=== PATIENT | female | born 1990 | race Caucasian/White ===

== ENCOUNTER → 2018-01-18 07:13 | Outpatient (CLI) | payer OTHER, SELFPAY ==
--- NOTE | 2018-01-18 | DI.US.S_ITS ---
PROCEDURE: US PELVIC COMPLETE INDICATIONS: PELVIC PAIN TECHNIQUE: Real-time scanning was performed of the pelvic organs, with image documentation. Additional endovaginal scanning was necessary due to incomplete visualization of the adnexal and endometrial structures by transabdominal scanning. COMPARISON: None. FINDINGS: Transabdominal scanning: Limited scanning through the kidneys shows no hydronephrosis. No pathologic free abdominal or pelvic fluid. Endovaginal scanning: Uterus: Uterus is normal in size at 8.1 x 3.2 x 4.2 cm. The endometrium measures 3.3 mm in combined thickness. Intrauterine device in expected position. Ovaries: Complex left ovarian cyst present with fishnet appearance measuring 4.3 x 3.3 x 4.0 cm. Normal right ovary measured 3.0 x 2.2 x 1.8 cm IMPRESSION: Hemorrhagic appearing left ovarian cyst measuring up to 4.3 cm. Recommend short term follow pelvic ultrasound in 6-12 weeks to assess for interval resolution. Dictated by: Osvaldo Blount [facility] Interpreted: Marilin Slade MD on 01/18/2018 at 9:50 Approved by: Marilin Slade MD, PhD on 01/18/2018 at 12:04
== END ==
PROVIDERS: PCP Family Medicine; Visit Provider Nurse Practitioner Family
DX: N83.202 Unspecified ovarian cyst, left side (principal)
CPT/HCPCS: 76830; 76856

== ENCOUNTER 2019-12-07 12:02 | Emergency (ER) | payer OTHER, SELFPAY ==
[2019-12-07] VITALS (11 sets, daily range): BP systolic 103–141; BP diastolic 68–86; PULSE 92–120; RESP 16–20; TEMP 36.2; O2SAT 94–100
--- NOTE | 2019-12-07 12:17 | DI.RAD.S_ITS ---
PROCEDURE: XR CHEST 1V INDICATIONS: SOB, ? covid, symptoms since early November TECHNIQUE: One view of the chest was acquired. COMPARISON: None. FINDINGS: Surgical changes and devices: None. Lungs and pleura: Lungs are clear. No pleural effusions or pneumothorax. Mediastinum: Mediastinal contours appear normal. The heart appears enlarged. Bones and chest wall: No suspicious bony lesions. Overlying soft tissues appear unremarkable. IMPRESSION: Cardiomegaly without overt heart failure. No definite pneumonia. Dictated by: Jesse Christy M.D. on 12/07/2019 at 12:09 Approved by: Jesse Christy M.D. on 12/07/2019 at 12:09
--- NOTE | 2019-12-07 13:25 | ED_ITS ---
HPI - SOB/Dyspnea <MARCELA Mcdaniel - Last Filed: 12/07/19 23:49> General Chief Complaint: Shortness of Breath/Dyspnea Stated Complaint: possible covid got sent from respiratory Time Seen by Provider: 12/07/19 12:17 Source: patient Mode of arrival: Ambulatory Limitations: no limitations History of Present Illness HPI Narrative: This is a 29-year-old female, no known significant medical history, smoker, presents to ED with chief complain of dyspnea, short of breath for nearly 3 weeks. She reports associated symptoms as lightheadedness and chest pain with coughing. Patient states her symptoms started end of September and was evaluated in respiratory clinic a week after and discharged to home with albuterol inhaler and diagnosed with acute bronchitis. Patient states no silva virus swab was done at this time. Patient states albuterol inhaler with spacer helps her symptoms for a short period of time but she continues to have short of breath, dry wheezy coughing spells, dyspnea. Reports had episodes of blacked out for 3 times after the coughing spells and last 1 was about 5 days ago. The black outs have been witnessed by her significant other for about a minute with jerking movements. Patient states she wakes up feeling tired and reports nocturnal orthopnea. Patient denies fever, chills. She noticed occasional leg swelling. She has occasional nausea and diarrhea and has been trying to stay hydrated with liquids at home. She reports sore throat only with coughing. She denies known exposure to her people with COVID-19 and has been self isolating herself with limited outings to grocery stores. Her significant other is not ill at this time. Patient rarely drinks about once a month and occasionally smoking marijuana but denies IV drug use. Patient has been taking ibuprofen and Tylenol occasionally for headaches. Related Data Previous Rx's Medication Instructions Recorded albuterol sulfate 90 mcg/actuation 2 puff INHALATION Q4-6H PRN #18 11/24/19 aerosol inhaler gram Allergies Allergy/AdvReac Type Severity Reaction Status Date / Time No Known Drug Allergies Allergy Verified 11/24/19 15:23 Review of Systems <MARCELA Mcdaniel - Last Filed: 12/07/19 23:49> Review of Systems Narrative: General: Denies fever, chills, fatigue, malaise, sweats. HEENT: See HPI Respiratory: See HPI Cardiovascular: Denies (+) chest pain with cough, palpitations, (+) orthopnea, (+) edema. Gastrointestinal: Denies nausea, vomiting, abdominal pain, diarrhea, constipation, melena. : Denies dysuria, frequency, incontinence, hematuria, urinary retention. Musculoskeletal: Denies weakness, joint pain or bony pain. Skin: Denies rash, skin lesions, or other. Neurologic: Denies weakness, headache, numbness, change in speech, confusion, seizures, incoordination. Psychiatric: No concerning psychosocial issues. 12-point review of systems is negative except for those stated above. [facility] - Last Filed: 12/07/19 23:49> Social History Smoking Status: Current every day smoker Smoking Status: Current every day smoker Substance Use Type: marijuana Exam [facility] - Last Filed: 12/07/19 23:49> Narrative Exam Narrative: GEN: Alert, oriented x 3, well appearing and nourished, and in no acute distress. Head: Normal cephalic, atraumatic. No scalp or temporal tenderness, palpable mass or rash. EYES: Pupils are equal, round, and reactive to light and accommodation. Extraocular muscles are intact bilaterally. There is no subconjunctival hemorrhage, exudate and sclera non-icteric. ENT: Bilateral auditory canals and tympanic membranes clear. Hearing grossly intact. Nose without bleeding, purulent discharge or deviation. Facial sinuses nontender to palpate. Mucous membrane moist, no mucosal lesion. Throat without erythema, tonsillar hypertrophy or exudate. Uvula in midline, airway patent. Neck: Trachea in midline. No JVD, non-tender without lymphadenopathy. No masses or thyroid megaly. Supple, non-tender and no meningeal signs. CARDIAC: Normal tachy rate without murmurs, gallops, or rubs. No chest wall tenderness. Bilateral lower extremity +1 edema without cyanosis or pallor. Capillary refill is less than 2 seconds. RESPIRATORY: Lungs are clear to auscultate bilaterally. No cough, wheezes, rales, or rhonchi. No stridor. Tachypnea rate at 100's with labored breathing without accessary muscle used. O2 sat in room air ranging from 94-96% during exam. ABD: Abdomen soft, nontender and non-distended. No guarding or rebound tenderness to palpate. Bowel sounds are normal in all 4 quadrants. There is no palpable masses or organomegaly. EXT: Full painless ROM of all extremities with no loss of sensation, strength, effusion or edema. SKIN: Warm, dry, normal color for patient. No erythema, lesions or rash over visible areas. BACK: Nontender without deformity or crepitance. No flank tenderness. NEUROLOGICAL: Alert and oriented to place, time and person. Sensation and motor function intact bilaterally. No facial droops, dysphasia. PSYCHIATRIC: Good judgement and reason, without hallucinations, abnormal affect or abnormal behaviors during the examination. Patient is not suicidal. Initial Vital Signs Initial Vital Signs: Vital Signs Temperature 97.1 F L 12/07/19 12:25 Pulse Rate 106 H 12/07/19 12:25 Respiratory Rate 18 12/07/19 12:25 Blood Pressure 140/84 12/07/19 12:25 Pulse Oximetry 96 12/07/19 12:25 <Cristy Light DO - Last Filed: 12/10/19 11:43> Initial Vital Signs Initial Vital Signs: Vital Signs Temperature 97.1 F L 12/07/19 12:25 Pulse Rate 106 H 12/07/19 12:25 Respiratory Rate 18 12/07/19 12:25 Blood Pressure 140/84 12/07/19 12:25 Pulse Oximetry 96 12/07/19 12:25 Scores <[facility] - Last Filed: 12/07/19 23:49> GCS [place] coma scale eye opening: Spontaneous [place] coma scale verbal response: Orientated [place] coma scale motor response: Obey commands [place] coma scale total score: 15 qSOFA Altered Mental Status (GCS <15): No Respiratory rate greater than/equal to 22: Yes Systolic blood pressure less than or equal to 100: No qSOFA Total: 1 0-1 Not High Risk 1-3 High risk Wells' Criteria for PE Clinical signs and symptoms of DVT: No PE is #1 Dx or equally likely: Yes Heart rate > 100: Yes Immobilization at least 3 days or surg in previous 4 weeks: No History of PE or DVT: No Hemoptysis: No Malignancy w/Treatment within 6 months or palliative: No Wells' PE Score total: 4.5 Course <Chet MARCELA Caal - Last Filed: 12/07/19 23:49> Orders Ordered: Discontinued Medications Acetaminophen (Tylenol) 650 mg PO NOW ONE Stop: 12/07/19 13:08 Last Admin: 12/07/19 13:57 Dose: 650 mg Documented by: FABIEN Furosemide (Lasix) 20 mg IV NOW ONE Stop: 12/07/19 17:04 Last Admin: 12/07/19 17:35 Dose: 20 mg Documented by: FABIEN Sodium Chloride (Normal Saline 0.9%) 1,000 mls @ 125 mls/hr IV BOLUS ONE Stop: 12/07/19 21:06 Last Infusion: 12/07/19 14:42 Dose: 125 mls/hr Documented by: HUESENKatie Admin: 12/07/19 13:57 Dose: 125 mls/hr Documented by: FABIEN Azithromycin 500 mg/ Dextrose 250 mls @ 250 mls/hr IV NOW ONE Stop: 12/07/19 17:04 Last Infusion: 12/07/19 18:41 Dose: 0 mls/hr Documented by: HUESENKatie Admin: 12/07/19 17:28 Dose: 250 mls/hr Documented by: FABIEN Ceftriaxone Sodium/Dextrose (Rocephin) 1 gm in 50 mls @ 100 mls/hr IV NOW ONE Stop: 12/07/19 17:33 Last Infusion: 12/07/19 18:41 Dose: 0 mls/hr Documented by: HUESENKatie Admin: 12/07/19 17:30 Dose: 100 mls/hr Documented by: FABIEN Ceftriaxone Sodium 500 mg/ (Dextrose) 50 mls @ 100 mls/hr IV NOW ONE Stop: 12/07/19 17:04 Last Admin: 12/07/19 18:31 Dose: Not Given Documented by: FABIEN Ondansetron HCl (Zofran) 4 mg IV NOW ONE Stop: 12/07/19 18:43 Last Admin: 12/07/19 18:46 Dose: 4 mg Documented by: FABIEN Vital Signs Vital signs: Vital Signs - 8 hr 12/07/19 17:30 12/07/19 17:32 12/07/19 18:43 Pulse Rate 94 H 92 H 120 H Respiratory Rate 18 18 Blood Pressure Blood Pressure [Right Arm] 133/82 135/80 103/68 Pulse Oximetry 100 100 12/07/19 19:50 12/07/19 20:30 12/07/19 22:24 Pulse Rate 99 H 110 H 107 H Respiratory Rate 18 Blood Pressure 121/73 Blood Pressure [Right Arm] 115/77 132/70 Pulse Oximetry 99 95 99 <Cristy Light, DO - Last Filed: 12/10/19 11:43> Orders Ordered: Discontinued Medications Acetaminophen (Tylenol) 650 mg PO NOW ONE Stop: 12/07/19 13:08 Last Admin: 12/07/19 13:57 Dose: 650 mg Documented by: HUESENKatie Furosemide (Lasix) 20 mg IV NOW ONE Stop: 12/07/19 17:04 Last Admin: 12/07/19 17:35 Dose: 20 mg Documented by: HUESENKatie Sodium Chloride (Normal Saline 0.9%) 1,000 mls @ 125 mls/hr IV BOLUS ONE Stop: 12/07/19 21:06 Last Infusion: 12/07/19 14:42 Dose: 125 mls/hr Documented by: HUESENKatie Admin: 12/07/19 13:57 Dose: 125 mls/hr Documented by: FABIEN Azithromycin 500 mg/ Dextrose 250 mls @ 250 mls/hr IV NOW ONE Stop: 12/07/19 17:04 Last Infusion: 12/07/19 18:41 Dose: 0 mls/hr Documented by: HUESENKatie Admin: 12/07/19 17:28 Dose: 250 mls/hr Documented by: HUESENKatie Ceftriaxone Sodium/Dextrose (Rocephin) 1 gm in 50 mls @ 100 mls/hr IV NOW ONE Stop: 12/07/19 17:33 Last Infusion: 12/07/19 18:41 Dose: 0 mls/hr Documented by: Admin: 12/07/19 17:30 Dose: 100 mls/hr Documented by: HUESENKatie Ceftriaxone Sodium 500 mg/ (Dextrose) 50 mls @ 100 mls/hr IV NOW ONE Stop: 12/07/19 17:04 Last Admin: 12/07/19 18:31 Dose: Not Given Documented by: HUESENKatie Ondansetron HCl (Zofran) 4 mg IV NOW ONE Stop: 12/07/19 18:43 Last Admin: 12/07/19 18:46 Dose: 4 mg Documented by: FABIEN Vital Signs Vital signs: Vital Signs - 8 hr 12/07/19 17:30 12/07/19 17:32 12/07/19 18:43 Pulse Rate 94 H 92 H 120 H Respiratory Rate 18 18 Blood Pressure Blood Pressure [Right Arm] 133/82 135/80 103/68 Pulse Oximetry 100 100 12/07/19 19:50 12/07/19 20:30 12/07/19 22:24 Pulse Rate 99 H 110 H 107 H Respiratory Rate 18 Blood Pressure 121/73 Blood Pressure [Right Arm] 115/77 132/70 Pulse Oximetry 99 95 99 MDM - SOB/Dyspnea <Chet MARCELA Caal - Last Filed: 12/07/19 23:49> Differential Diagnosis Differential diagnosis: Likely congestive heart failure, community acquired pneumonia, pulmonary embolism and other (Bronchitis, Covid 19, heart failure, myocardiopathy, pericarditis, cardiac tamponade) Medical Records Attestation: I reviewed the patient's medical records. Lab Data Attestation: I reviewed the patient's lab results. Result diagrams: 12/07/19 13:30 12/07/19 13:30 Labs: Lab Results 12/07/19 12/07/19 12/07/19 Range/Units 13:30 13:30 13:30 WBC 11.9 H (4.5-11.0) X10^3/uL RBC 4.90 (4.0-5.2) X10^6/uL Hgb 14.8 (12.0-16.0) g/dL Hct 44.8 (36-46) % MCV 91.5 (80-100) fL MCH 30.2 (26-34) PG MCHC 33.0 (30-36) % RDW 14.4 (11.6-14.8) % Plt Count 296 (150-400) X10^3/uL Neut % (Auto) 62.1 (50-75) % Lymph % (Auto) 27.1 (25-40) % [place] % (Auto) 7.8 (3-14) % Eos % (Auto) 1.7 L (2-4) % Baso % (Auto) 1.3 (0-2) % Neut # (Auto) 7400 H (7742-2837) /uL Lymph # (Auto) 3200 (5917-6065) /uL [place] # (Auto) 900 (0-900) /uL Eos # (Auto) 200 (0-450) /uL Baso # (Auto) 200 H (0-100) /uL ESR (0-20) MM/HR D-Dimer 703 H (<230) ng/mL Sodium 136 L (137-145) mmol/L Potassium 4.8 (3.4-5.1) mmol/L Chloride 104 (98-107) mmol/L Carbon Dioxide 24 (22-32) mmol/L BUN 17 (7-17) mg/dL Creatinine 0.72 (0.52-1.04) mg/dL Estimated GFR > 60.0 (>60) mL/min BUN/Creatinine Ratio 23.6 H (6-22) Glucose 107 H (70-100) mg/dL Lactate (0.7-2.1) mmol/L Calcium 9.1 (8.4-10.2) mg/dL Total Bilirubin 1.1 (0.2-1.3) mg/dL AST 54 H (14-36) IU/L ALT 47 H (<35) IU/L Alkaline Phosphatase 102 (38-126) U/L Lactate Dehydrogenase 848 H (313-618) U/L Total Creatine Kinase 129 (30-135) U/L CK-MB (CK-2) 2.26 (<2.37) ng/mL CK-MB (CK-2) Rel Index 1.8 (1.5-5.0) % Troponin I < 0.012 (0.01-0.034) ng/mL C-Reactive Protein (<1.0) mg/dL NT-Pro-B Natriuret Pep 1560 H (<125) pg/mL Total Protein 7.0 (6.3-8.2) g/dL Albumin 3.8 (3.5-5.0) g/dL Globulin 3.2 (1.7-4.1) g/dL Albumin/Globulin Ratio 1.2 (1.0-2.8) Procalcitonin (<0.5) ng/mL U Opiates 300ng/mL cut (Negative) Ur Oxycodone Screen (Negative) Urine Methadone Screen (Negative) Ur Barbiturates Screen (Negative) U Tricyclic Antidepress (Negative) Ur Phencyclidine Scrn (Negative) Ur Amphetamines Screen (Negative) U Methamphetamines Scrn (Negative) Ur MDMA Scrn (Ecstasy) (Negative) U Benzodiazepines Scrn (Negative) Urine Cocaine Screen (Negative) U Marijuana (THC) Screen (Negative) Chlamy pneumoniae PCR (Not Detect) Adenovirus (PCR) (Not Detect) B.parapertussis DNA PCR (Not Detect) Coronavirus OC43 (PCR) (Not Detect) Coronavirus HKU1 (PCR) (Not Detect) Coronavirus 229E (PCR) (Not Detect) COVID-19 PCR Coronavirus NL63 (PCR) (Not Detect) Human Metapneumovir PCR (Not Detect) Influenza Type A (PCR) (Not Detect) Influenza Type B (PCR) (Not Detect) M. pneumoniae (PCR) (Not Detect) Parainfluenza 1 (PCR) (Not Detect) Parainfluenza 2 (PCR) (Not Detect) Parainfluenza 3 (PCR) (Not Detect) Parainfluenza 4 (PCR) (Not Detect) RSV (PCR) (Not Detect) Entero/Rhino (PCR) (Not Detect) 12/07/19 12/07/19 12/07/19 Range/Units 13:30 13:30 13:30 WBC (4.5-11.0) X10^3/uL RBC (4.0-5.2) X10^6/uL Hgb (12.0-16.0) g/dL Hct (36-46) % MCV (80-100) fL MCH (26-34) PG MCHC (30-36) % RDW (11.6-14.8) % Plt Count (150-400) X10^3/uL Neut % (Auto) (50-75) % Lymph % (Auto) (25-40) % [place] % (Auto) (3-14) % Eos % (Auto) (2-4) % Baso % (Auto) (0-2) % Neut # (Auto) (7356-3509) /uL Lymph # (Auto) (4395-0721) /uL [place] # (Auto) (0-900) /uL Eos # (Auto) (0-450) /uL Baso # (Auto) (0-100) /uL ESR 3 (0-20) MM/HR D-Dimer (<230) ng/mL Sodium (137-145) mmol/L Potassium (3.4-5.1) mmol/L Chloride (98-107) mmol/L Carbon Dioxide (22-32) mmol/L BUN (7-17) mg/dL Creatinine (0.52-1.04) mg/dL Estimated GFR (>60) mL/min BUN/Creatinine Ratio (6-22) Glucose (70-100) mg/dL Lactate 1.5 (0.7-2.1) mmol/L Calcium (8.4-10.2) mg/dL Total Bilirubin (0.2-1.3) mg/dL AST (14-36) IU/L ALT (<35) IU/L Alkaline Phosphatase (38-126) U/L Lactate Dehydrogenase (313-618) U/L Total Creatine Kinase (30-135) U/L CK-MB (CK-2) (<2.37) ng/mL CK-MB (CK-2) Rel Index (1.5-5.0) % Troponin I (0.01-0.034) ng/mL C-Reactive Protein (<1.0) mg/dL NT-Pro-B Natriuret Pep (<125) pg/mL Total Protein (6.3-8.2) g/dL Albumin (3.5-5.0) g/dL Globulin (1.7-4.1) g/dL Albumin/Globulin Ratio (1.0-2.8) Procalcitonin < 0.05 (<0.5) ng/mL U Opiates 300ng/mL cut (Negative) Ur Oxycodone Screen (Negative) Urine Methadone Screen (Negative) Ur Barbiturates Screen (Negative) U Tricyclic Antidepress (Negative) Ur Phencyclidine Scrn (Negative) Ur Amphetamines Screen (Negative) U Methamphetamines Scrn (Negative) Ur MDMA Scrn (Ecstasy) (Negative) U Benzodiazepines Scrn (Negative) Urine Cocaine Screen (Negative) U Marijuana (THC) Screen (Negative) Chlamy pneumoniae PCR (Not Detect) Adenovirus (PCR) (Not Detect) B.parapertussis DNA PCR (Not Detect) Coronavirus OC43 (PCR) (Not Detect) Coronavirus HKU1 (PCR) (Not Detect) Coronavirus 229E (PCR) (Not Detect) COVID-19 PCR Coronavirus NL63 (PCR) (Not Detect) Human Metapneumovir PCR (Not Detect) Influenza Type A (PCR) (Not Detect) Influenza Type B (PCR) (Not Detect) M. pneumoniae (PCR) (Not Detect) Parainfluenza 1 (PCR) (Not Detect) Parainfluenza 2 (PCR) (Not Detect) Parainfluenza 3 (PCR) (Not Detect) Parainfluenza 4 (PCR) (Not Detect) RSV (PCR) (Not Detect) Entero/Rhino (PCR) (Not Detect) 12/07/19 12/07/19 12/07/19 Range/Units 13:30 13:37 15:24 WBC (4.5-11.0) X10^3/uL RBC (4.0-5.2) X10^6/uL Hgb (12.0-16.0) g/dL Hct (36-46) % MCV (80-100) fL MCH (26-34) PG MCHC (30-36) % RDW (11.6-14.8) % Plt Count (150-400) X10^3/uL Neut % (Auto) (50-75) % Lymph % (Auto) (25-40) % [place] % (Auto) (3-14) % Eos % (Auto) (2-4) % Baso % (Auto) (0-2) % Neut # (Auto) (0555-8786) /uL Lymph # (Auto) (7850-8140) /uL [place] # (Auto) (0-900) /uL Eos # (Auto) (0-450) /uL Baso # (Auto) (0-100) /uL ESR (0-20) MM/HR D-Dimer (<230) ng/mL Sodium (137-145) mmol/L Potassium (3.4-5.1) mmol/L Chloride (98-107) mmol/L Carbon Dioxide (22-32) mmol/L BUN (7-17) mg/dL Creatinine (0.52-1.04) mg/dL Estimated GFR (>60) mL/min BUN/Creatinine Ratio (6-22) Glucose (70-100) mg/dL Lactate (0.7-2.1) mmol/L Calcium (8.4-10.2) mg/dL Total Bilirubin (0.2-1.3) mg/dL AST (14-36) IU/L ALT (<35) IU/L Alkaline Phosphatase (38-126) U/L Lactate Dehydrogenase (313-618) U/L Total Creatine Kinase (30-135) U/L CK-MB (CK-2) (<2.37) ng/mL CK-MB (CK-2) Rel Index (1.5-5.0) % Troponin I (0.01-0.034) ng/mL C-Reactive Protein 2.2 H (<1.0) mg/dL NT-Pro-B Natriuret Pep (<125) pg/mL Total Protein (6.3-8.2) g/dL Albumin (3.5-5.0) g/dL Globulin (1.7-4.1) g/dL Albumin/Globulin Ratio (1.0-2.8) Procalcitonin (<0.5) ng/mL U Opiates 300ng/mL cut (Negative) Ur Oxycodone Screen (Negative) Urine Methadone Screen (Negative) Ur Barbiturates Screen (Negative) U Tricyclic Antidepress (Negative) Ur Phencyclidine Scrn (Negative) Ur Amphetamines Screen (Negative) U Methamphetamines Scrn (Negative) Ur MDMA Scrn (Ecstasy) (Negative) U Benzodiazepines Scrn (Negative) Urine Cocaine Screen (Negative) U Marijuana (THC) Screen (Negative) Chlamy pneumoniae PCR (Not Detect) Adenovirus (PCR) (Not Detect) B.parapertussis DNA PCR (Not Detect) Coronavirus OC43 (PCR) (Not Detect) Coronavirus HKU1 (PCR) (Not Detect) Coronavirus 229E (PCR) (Not Detect) COVID-19 PCR Cancelled Negative Coronavirus NL63 (PCR) (Not Detect) Human Metapneumovir PCR (Not Detect) Influenza Type A (PCR) (Not Detect) Influenza Type B (PCR) (Not Detect) M. pneumoniae (PCR) (Not Detect) Parainfluenza 1 (PCR) (Not Detect) Parainfluenza 2 (PCR) (Not Detect) Parainfluenza 3 (PCR) (Not Detect) Parainfluenza 4 (PCR) (Not Detect) RSV (PCR) (Not Detect) Entero/Rhino (PCR) (Not Detect) 12/07/19 12/07/19 Range/Units 18:08 18:50 WBC (4.5-11.0) X10^3/uL RBC (4.0-5.2) X10^6/uL Hgb (12.0-16.0) g/dL Hct (36-46) % MCV (80-100) fL MCH (26-34) PG MCHC (30-36) % RDW (11.6-14.8) % Plt Count (150-400) X10^3/uL Neut % (Auto) (50-75) % Lymph % (Auto) (25-40) % [place] % (Auto) (3-14) % Eos % (Auto) (2-4) % Baso % (Auto) (0-2) % Neut # (Auto) (6748-5894) /uL Lymph # (Auto) (2182-9231) /uL [place] # (Auto) (0-900) /uL Eos # (Auto) (0-450) /uL Baso # (Auto) (0-100) /uL ESR (0-20) MM/HR D-Dimer (<230) ng/mL Sodium (137-145) mmol/L Potassium (3.4-5.1) mmol/L Chloride (98-107) mmol/L Carbon Dioxide (22-32) mmol/L BUN (7-17) mg/dL Creatinine (0.52-1.04) mg/dL Estimated GFR (>60) mL/min BUN/Creatinine Ratio (6-22) Glucose (70-100) mg/dL Lactate (0.7-2.1) mmol/L Calcium (8.4-10.2) mg/dL Total Bilirubin (0.2-1.3) mg/dL AST (14-36) IU/L ALT (<35) IU/L Alkaline Phosphatase (38-126) U/L Lactate Dehydrogenase (313-618) U/L Total Creatine Kinase (30-135) U/L CK-MB (CK-2) (<2.37) ng/mL CK-MB (CK-2) Rel Index (1.5-5.0) % Troponin I (0.01-0.034) ng/mL C-Reactive Protein (<1.0) mg/dL NT-Pro-B Natriuret Pep (<125) pg/mL Total Protein (6.3-8.2) g/dL Albumin (3.5-5.0) g/dL Globulin (1.7-4.1) g/dL Albumin/Globulin Ratio (1.0-2.8) Procalcitonin (<0.5) ng/mL U Opiates 300ng/mL cut Negative (Negative) Ur Oxycodone Screen Negative (Negative) Urine Methadone Screen Negative (Negative) Ur Barbiturates Screen Negative (Negative) U Tricyclic Antidepress Negative (Negative) Ur Phencyclidine Scrn Negative (Negative) Ur Amphetamines Screen Positive H (Negative) U Methamphetamines Scrn Positive H (Negative) Ur MDMA Scrn (Ecstasy) Negative (Negative) U Benzodiazepines Scrn Negative (Negative) Urine Cocaine Screen Negative (Negative) U Marijuana (THC) Screen Positive H (Negative) Chlamy pneumoniae PCR Not detected (Not Detect) Adenovirus (PCR) Not detected (Not Detect) B.parapertussis DNA PCR Not detected (Not Detect) Coronavirus OC43 (PCR) Not detected (Not Detect) Coronavirus HKU1 (PCR) Not detected (Not Detect) Coronavirus 229E (PCR) Not detected (Not Detect) COVID-19 PCR Coronavirus NL63 (PCR) Not detected (Not Detect) Human Metapneumovir PCR Not detected (Not Detect) Influenza Type A (PCR) Not detected (Not Detect) Influenza Type B (PCR) Not detected (Not Detect) M. pneumoniae (PCR) Not detected (Not Detect) Parainfluenza 1 (PCR) Not detected (Not Detect) Parainfluenza 2 (PCR) Not detected (Not Detect) Parainfluenza 3 (PCR) Not detected (Not Detect) Parainfluenza 4 (PCR) Not detected (Not Detect) RSV (PCR) Not detected (Not Detect) Entero/Rhino (PCR) Not detected (Not Detect) Point of Care Testing Test Results Negative Urine Dip Bedside Urine Glucose Negative Bedside Urine Bilirubin - Negative Bedside Urine Ketone - Negative Urine Specific [place] 1.010 Bedside Urine Occult Blood - Negative Bedside Urine pH 6 Bedside Urine Protein +/- 15 Bedside Urine Urobilinogen - Negative Bedside Urine Nitrite - Negative Bedside Urine Leukocytes - Negative Esterase Imaging Data Chest x-ray: Radiologist's Impression: Katelynn Soares A 29 F [address] [address] XRay Report Signed Patient: Katelynn Soares AMR#: [id number] : 1990Acct:[id number] Age/Sex: 29 / FDate of Service: 12/07/19 Loc: ED Accession Number: [id number] Procedure: XR chest 1V Ordering Provider: Cristy Light D.O. PROCEDURE: XR CHEST 1V INDICATIONS: SOB, ? covid, symptoms since early November TECHNIQUE: One view of the chest was acquired. COMPARISON: None. FINDINGS: Surgical changes and devices: None. Lungs and pleura: Lungs are clear. No pleural effusions or pneumothorax. Mediastinum: Mediastinal contours appear normal. The heart appears enlarged. Bones and chest wall: No suspicious bony lesions. Overlying soft tissues appear unremarkable. IMPRESSION: Cardiomegaly without overt heart failure. No definite pneumonia. Dictated by: Jesse Christy M.D. on 12/07/2019 at 12:09 Approved by: Jesse Christy M.D. on 12/07/2019 at 12:09 CT scan - chest: Radiologist's Impression: [address] [address] [address] Scan Report Signed Patient: Katelynn Soares AMR#: [id number] : 1990Acct:[id number] Age/Sex: 29 / FDate of Service: 12/07/19 Loc: ED Accession Number: [id number] Procedure: CT angio chest PE protocol Ordering Provider: Chet Caal PROCEDURE: CT ANGIO CHEST PE PROTOCOL INDICATIONS: dyspnea, sob, elevated d dimer TECHNIQUE: After the administration of intravenous contrast, 2 mm thick sections acquired from the pulmonary apices to the posterior costophrenic angles. 3-dimensional maximum intensity projection (MIP) coronal and sagittal reformats were then acquired through the thorax. For radiation dose reduction, the following was used: automated exposure control, adjustment of mA and/or kV according to patient size. COMPARISON: None. FINDINGS: Image quality: Excellent. Pulmonary arteries: The main pulmonary arterial trunk is enlarged and measures 3.8 cm in diameter (image 62, series 4). No intraluminal filling defects within it the main pulmonary arterial trunk, lobar branches, and subsegmental lobar branches are identified to suggest a pulmonary embolism. Lungs and pleura: There is a small right-sided pleural effusion and associated mild atelectasis. Groundglass attenuation within the bilateral suprahilar regions of the upper lobes are evident. No lung mass is identified. However, there is a 3 mm subpleural pulmonary nodule identified on the posterior aspect of the left upper lobe (image 30, series 4). No pneumothorax or large area of pulmonary consolidation is identified. Mediastinum: The heart is normal in size. However, there is a moderate-sized pericardial effusion.. No mediastinal or hilar adenopathy. Thoracic aorta is normal in caliber and enhancement. Esophagus is normal in caliber, without hiatal hernia. Bones and chest wall: No suspicious bony lesions. Ribs and thoracic spine appear intact throughout. Thyroid gland is not enlarged were adequately evaluated.. No axillary or supraclavicular adenopathy. Abdomen: Visualized upper abdominal solid organs appear normal in the early arterial phase of enhancement. IMPRESSION: 1. No evidence of pulmonary emboli. 2. Patchy areas of groundglass attenuation within the upper lobes is nonspecific. Differential diagnostic considerations would include atypical infections such as bronchopneumonia or pulmonary edema. Hypersensitivity pneumonitis could also potentially have this appearance. 3. Small right-sided pleural effusion and associated atelectasis. 4. Moderate-sized pericardial effusion. 5. Enlarged main pulmonary arterial trunk is nonspecific, but often seen in the setting of pulmonary hypertension. Please correlate clinically. Dictated by: Jesse Christy M.D. on 12/07/2019 at 13:58 Approved by: Jesse Christy M.D. on 12/07/2019 at 14:01 ECG Data Attestation: I personally reviewed and interpreted this ECG as follows: Prior ECG tracings: not available for review Interpretation: Sinus tachycardia rate at 100 with incomplete right bundle- branch block Left atrial enlargement with possible right ventricular hypertrophy R dominant axis ST depression in lead III and V3 [place] interval 162, QRS duration 110, QT/QTC 361/418 MDM Narrative Medical decision making narrative: This is a 29 year female who has dyspnea, short of breath, nonproductive cough for last 3 weeks. Reports exertional short of breath and witness 3 episodes of syncopal episodes after the coughing spells. Patient reports nocturnal orthopnea with some swelling to her legs. Patient reports feeling pressure in her chest and lightheaded with bending forward position. Patient denies fever or chills or nausea or vomiting. Initial chest x-ray indicates cardiomegaly without overt heart failure with clear lungs. Lung sounds were clear but patient had mild tachypnea with labored breathing with O2 sat at 94-96% and tachycardia of 106 bpm during initial exam. CBC indicates mild leukocytosis of WBC of 11.9 with normal lymphocyte counts. Normal procalcitonin and lactate. CMP indicates mild elevation of AST of 54 and ALT of 47. ProBNP was 1560 with D dimer of 704. LDH was mildly elevated as 848. Cardiac enzymes were negative. EKG indicates sinus tachycardia rate at 100 with incomplete right bundle-branch block, ST depression in lead III and V3 and left atrial enlargement and possible right ventricular hypertrophy. Wells PE score was 4.5 and considered for pulmonary embolism evaluation. The patient is afebrile and with systolic blood pressure ranging from 120s to 140s over 80s and diastolic with heart rates ranging in 90s to 110s. CT chest PE result indicates no evidence of pulmonary emboli. There was moderate size pericardial effusion with small right-sided pleural effusion associated atelectasis. There was enlarged main pulmonary artery trunk which is nonspecific but often seen in the setting of pulmonary hypertension and also patchy area of ground-glass attenuation with the upper lobes. Rapid Silva virus swab was negative. Consulted Dr. Stauffer (PCP) and it was recommended to consult hospitalist for admission and to manage her care with further evaluation and treatment. Dr. Mix (hospitalist) was consulted and it was recommend to consult the cardiolgist to rule out pericarditis. Additional lab test was added for ESR, CRP, respiratory panel as recommended. Patient is given IV azithromycin 500 mg, ceftriaxone 1 g after 2 sets of blood culture to treat atypical pneumonia and gently diuresing patient with 20 mg of Lasix. CRP was mildly elevated to 2.2 without elevation in ESR as 3. Dr. Guerra (idea worker) was consulted at 1930 and she kindly accepted her care for further work up with echocardiogram and pericarditis/cardiac tamponade and there is no cardiology service available at [facility] tomorrow.. She recommended to gently diuresing the patient and to hold any better nabor. According to Dr. Guerra, it is unlikely patient has myocardiopathy with normal cardiac enzymes without ST elevation. Patient had an episode of nausea and was medicated with Zofran which improved her symptoms. She had used her own inhaler with a spacer for short of breath also which improved her symptoms. Dr. Reyna ([facility] hospitalist) was consulted at 1950 and he kindly accepted patient's care with Dr. Guerra's recommendation. Additional Urine drug screening test was done and it indicates positive results for methamphetamine, amphetamine and THC. Dr. Stauffer informed again for pending transfer to [facility] which he appreciates the call. The patient is [facility] before arranging the transport. Spoke with at [facility] and he instructed patient to transfer to [facility] for her continuation of care. Informed patient of pending transfer to [facility] for further workup and higher level of care by idea worker and she agrees and completed requiring documentation. She is waiting for ALS transfer arrival with ETA at 2220. <Cristy Light, DO - Last Filed: 12/10/19 11:43> Lab Data Attestation: I reviewed the patient's lab results. Labs: Lab Results 12/07/19 12/07/19 12/07/19 Range/Units 13:30 13:30 13:30 WBC 11.9 H (4.5-11.0) X10^3/uL RBC 4.90 (4.0-5.2) X10^6/uL Hgb 14.8 (12.0-16.0) g/dL Hct 44.8 (36-46) % MCV 91.5 (80-100) fL MCH 30.2 (26-34) PG MCHC 33.0 (30-36) % RDW 14.4 (11.6-14.8) % Plt Count 296 (150-400) X10^3/uL Neut % (Auto) 62.1 (50-75) % Lymph % (Auto) 27.1 (25-40) % M[place]ulloch % (Auto) 7.8 (3-14) % Eos % (Auto) 1.7 L (2-4) % Baso % (Auto) 1.3 (0-2) % Neut # (Auto) 7400 H (6399-1454) /uL Lymph # (Auto) 3200 (5868-5758) /uL [place] # (Auto) 900 (0-900) /uL Eos # (Auto) 200 (0-450) /uL Baso # (Auto) 200 H (0-100) /uL ESR (0-20) MM/HR D-Dimer 703 H (<230) ng/mL Sodium 136 L (137-145) mmol/L Potassium 4.8 (3.4-5.1) mmol/L Chloride 104 (98-107) mmol/L Carbon Dioxide 24 (22-32) mmol/L BUN 17 (7-17) mg/dL Creatinine 0.72 (0.52-1.04) mg/dL Estimated GFR > 60.0 (>60) mL/min BUN/Creatinine Ratio 23.6 H (6-22) Glucose 107 H (70-100) mg/dL Lactate (0.7-2.1) mmol/L Calcium 9.1 (8.4-10.2) mg/dL Total Bilirubin 1.1 (0.2-1.3) mg/dL AST 54 H (14-36) IU/L ALT 47 H (<35) IU/L Alkaline Phosphatase 102 (38-126) U/L Lactate Dehydrogenase 848 H (313-618) U/L Total Creatine Kinase 129 (30-135) U/L CK-MB (CK-2) 2.26 (<2.37) ng/mL CK-MB (CK-2) Rel Index 1.8 (1.5-5.0) % Troponin I < 0.012 (0.01-0.034) ng/mL C-Reactive Protein (<1.0) mg/dL NT-Pro-B Natriuret Pep 1560 H (<125) pg/mL Total Protein 7.0 (6.3-8.2) g/dL Albumin 3.8 (3.5-5.0) g/dL Globulin 3.2 (1.7-4.1) g/dL Albumin/Globulin Ratio 1.2 (1.0-2.8) Procalcitonin (<0.5) ng/mL U Opiates 300ng/mL cut (Negative) Ur Oxycodone Screen (Negative) Urine Methadone Screen (Negative) Ur Barbiturates Screen (Negative) U Tricyclic Antidepress (Negative) Ur Phencyclidine Scrn (Negative) Ur Amphetamines Screen (Negative) U Methamphetamines Scrn (Negative) Ur MDMA Scrn (Ecstasy) (Negative) U Benzodiazepines Scrn (Negative) Urine Cocaine Screen (Negative) U Marijuana (THC) Screen (Negative) Chlamy pneumoniae PCR (Not Detect) Adenovirus (PCR) (Not Detect) B.parapertussis DNA PCR (Not Detect) Coronavirus OC43 (PCR) (Not Detect) Coronavirus HKU1 (PCR) (Not Detect) Coronavirus 229E (PCR) (Not Detect) COVID-19 PCR Coronavirus NL63 (PCR) (Not Detect) Human Metapneumovir PCR (Not Detect) Influenza Type A (PCR) (Not Detect) Influenza Type B (PCR) (Not Detect) M. pneumoniae (PCR) (Not Detect) Parainfluenza 1 (PCR) (Not Detect) Parainfluenza 2 (PCR) (Not Detect) Parainfluenza 3 (PCR) (Not Detect) Parainfluenza 4 (PCR) (Not Detect) RSV (PCR) (Not Detect) Entero/Rhino (PCR) (Not Detect) 12/07/19 12/07/19 12/07/19 Range/Units 13:30 13:30 13:30 WBC (4.5-11.0) X10^3/uL RBC (4.0-5.2) X10^6/uL Hgb (12.0-16.0) g/dL Hct (36-46) % MCV (80-100) fL MCH (26-34) PG MCHC (30-36) % RDW (11.6-14.8) % Plt Count (150-400) X10^3/uL Neut % (Auto) (50-75) % Lymph % (Auto) (25-40) % [place]ull[place] % (Auto) (3-14) % Eos % (Auto) (2-4) % Baso % (Auto) (0-2) % Neut # (Auto) (9540-6904) /uL Lymph # (Auto) (5209-8628) /uL [place] # (Auto) (0-900) /uL Eos # (Auto) (0-450) /uL Baso # (Auto) (0-100) /uL ESR 3 (0-20) MM/HR D-Dimer (<230) ng/mL Sodium (137-145) mmol/L Potassium (3.4-5.1) mmol/L Chloride (98-107) mmol/L Carbon Dioxide (22-32) mmol/L BUN (7-17) mg/dL Creatinine (0.52-1.04) mg/dL Estimated GFR (>60) mL/min BUN/Creatinine Ratio (6-22) Glucose (70-100) mg/dL Lactate 1.5 (0.7-2.1) mmol/L Calcium (8.4-10.2) mg/dL Total Bilirubin (0.2-1.3) mg/dL AST (14-36) IU/L ALT (<35) IU/L Alkaline Phosphatase (38-126) U/L Lactate Dehydrogenase (313-618) U/L Total Creatine Kinase (30-135) U/L CK-MB (CK-2) (<2.37) ng/mL CK-MB (CK-2) Rel Index (1.5-5.0) % Troponin I (0.01-0.034) ng/mL C-Reactive Protein (<1.0) mg/dL NT-Pro-B Natriuret Pep (<125) pg/mL Total Protein (6.3-8.2) g/dL Albumin (3.5-5.0) g/dL Globulin (1.7-4.1) g/dL Albumin/Globulin Ratio (1.0-2.8) Procalcitonin < 0.05 (<0.5) ng/mL U Opiates 300ng/mL cut (Negative) Ur Oxycodone Screen (Negative) Urine Methadone Screen (Negative) Ur Barbiturates Screen (Negative) U Tricyclic Antidepress (Negative) Ur Phencyclidine Scrn (Negative) Ur Amphetamines Screen (Negative) U Methamphetamines Scrn (Negative) Ur MDMA Scrn (Ecstasy) (Negative) U Benzodiazepines Scrn (Negative) Urine Cocaine Screen (Negative) U Marijuana (THC) Screen (Negative) Chlamy pneumoniae PCR (Not Detect) Adenovirus (PCR) (Not Detect) B.parapertussis DNA PCR (Not Detect) Coronavirus OC43 (PCR) (Not Detect) Coronavirus HKU1 (PCR) (Not Detect) Coronavirus 229E (PCR) (Not Detect) COVID-19 PCR Coronavirus NL63 (PCR) (Not Detect) Human Metapneumovir PCR (Not Detect) Influenza Type A (PCR) (Not Detect) Influenza Type B (PCR) (Not Detect) M. pneumoniae (PCR) (Not Detect) Parainfluenza 1 (PCR) (Not Detect) Parainfluenza 2 (PCR) (Not Detect) Parainfluenza 3 (PCR) (Not Detect) Parainfluenza 4 (PCR) (Not Detect) RSV (PCR) (Not Detect) Entero/Rhino (PCR) (Not Detect) 12/07/19 12/07/19 12/07/19 Range/Units 13:30 13:37 15:24 WBC (4.5-11.0) X10^3/uL RBC (4.0-5.2) X10^6/uL Hgb (12.0-16.0) g/dL Hct (36-46) % MCV (80-100) fL MCH (26-34) PG MCHC (30-36) % RDW (11.6-14.8) % Plt Count (150-400) X10^3/uL Neut % (Auto) (50-75) % Lymph % (Auto) (25-40) % [place]ull[place] % (Auto) (3-14) % Eos % (Auto) (2-4) % Baso % (Auto) (0-2) % Neut # (Auto) (4140-3021) /uL Lymph # (Auto) (7264-3045) /uL [place]ulloch # (Auto) (0-900) /uL Eos # (Auto) (0-450) /uL Baso # (Auto) (0-100) /uL ESR (0-20) MM/HR D-Dimer (<230) ng/mL Sodium (137-145) mmol/L Potassium (3.4-5.1) mmol/L Chloride (98-107) mmol/L Carbon Dioxide (22-32) mmol/L BUN (7-17) mg/dL Creatinine (0.52-1.04) mg/dL Estimated GFR (>60) mL/min BUN/Creatinine Ratio (6-22) Glucose (70-100) mg/dL Lactate (0.7-2.1) mmol/L Calcium (8.4-10.2) mg/dL Total Bilirubin (0.2-1.3) mg/dL AST (14-36) IU/L ALT (<35) IU/L Alkaline Phosphatase (38-126) U/L Lactate Dehydrogenase (313-618) U/L Total Creatine Kinase (30-135) U/L CK-MB (CK-2) (<2.37) ng/mL CK-MB (CK-2) Rel Index (1.5-5.0) % Troponin I (0.01-0.034) ng/mL C-Reactive Protein 2.2 H (<1.0) mg/dL NT-Pro-B Natriuret Pep (<125) pg/mL Total Protein (6.3-8.2) g/dL Albumin (3.5-5.0) g/dL Globulin (1.7-4.1) g/dL Albumin/Globulin Ratio (1.0-2.8) Procalcitonin (<0.5) ng/mL U Opiates 300ng/mL cut (Negative) Ur Oxycodone Screen (Negative) Urine Methadone Screen (Negative) Ur Barbiturates Screen (Negative) U Tricyclic Antidepress (Negative) Ur Phencyclidine Scrn (Negative) Ur Amphetamines Screen (Negative) U Methamphetamines Scrn (Negative) Ur MDMA Scrn (Ecstasy) (Negative) U Benzodiazepines Scrn (Negative) Urine Cocaine Screen (Negative) U Marijuana (THC) Screen (Negative) Chlamy pneumoniae PCR (Not Detect) Adenovirus (PCR) (Not Detect) B.parapertussis DNA PCR (Not Detect) Coronavirus OC43 (PCR) (Not Detect) Coronavirus HKU1 (PCR) (Not Detect) Coronavirus 229E (PCR) (Not Detect) COVID-19 PCR Cancelled Negative Coronavirus NL63 (PCR) (Not Detect) Human Metapneumovir PCR (Not Detect) Influenza Type A (PCR) (Not Detect) Influenza Type B (PCR) (Not Detect) M. pneumoniae (PCR) (Not Detect) Parainfluenza 1 (PCR) (Not Detect) Parainfluenza 2 (PCR) (Not Detect) Parainfluenza 3 (PCR) (Not Detect) Parainfluenza 4 (PCR) (Not Detect) RSV (PCR) (Not Detect) Entero/Rhino (PCR) (Not Detect) 12/07/19 12/07/19 Range/Units 18:08 18:50 WBC (4.5-11.0) X10^3/uL RBC (4.0-5.2) X10^6/uL Hgb (12.0-16.0) g/dL Hct (36-46) % MCV (80-100) fL MCH (26-34) PG MCHC (30-36) % RDW (11.6-14.8) % Plt Count (150-400) X10^3/uL Neut % (Auto) (50-75) % Lymph % (Auto) (25-40) % M[place]ulloch % (Auto) (3-14) % Eos % (Auto) (2-4) % Baso % (Auto) (0-2) % Neut # (Auto) (4912-8757) /uL Lymph # (Auto) (5788-9173) /uL [place] # (Auto) (0-900) /uL Eos # (Auto) (0-450) /uL Baso # (Auto) (0-100) /uL ESR (0-20) MM/HR D-Dimer (<230) ng/mL Sodium (137-145) mmol/L Potassium (3.4-5.1) mmol/L Chloride (98-107) mmol/L Carbon Dioxide (22-32) mmol/L BUN (7-17) mg/dL Creatinine (0.52-1.04) mg/dL Estimated GFR (>60) mL/min BUN/Creatinine Ratio (6-22) Glucose (70-100) mg/dL Lactate (0.7-2.1) mmol/L Calcium (8.4-10.2) mg/dL Total Bilirubin (0.2-1.3) mg/dL AST (14-36) IU/L ALT (<35) IU/L Alkaline Phosphatase (38-126) U/L Lactate Dehydrogenase (313-618) U/L Total Creatine Kinase (30-135) U/L CK-MB (CK-2) (<2.37) ng/mL CK-MB (CK-2) Rel Index (1.5-5.0) % Troponin I (0.01-0.034) ng/mL C-Reactive Protein (<1.0) mg/dL NT-Pro-B Natriuret Pep (<125) pg/mL Total Protein (6.3-8.2) g/dL Albumin (3.5-5.0) g/dL Globulin (1.7-4.1) g/dL Albumin/Globulin Ratio (1.0-2.8) Procalcitonin (<0.5) ng/mL U Opiates 300ng/mL cut Negative (Negative) Ur Oxycodone Screen Negative (Negative) Urine Methadone Screen Negative (Negative) Ur Barbiturates Screen Negative (Negative) U Tricyclic Antidepress Negative (Negative) Ur Phencyclidine Scrn Negative (Negative) Ur Amphetamines Screen Positive H (Negative) U Methamphetamines Scrn Positive H (Negative) Ur MDMA Scrn (Ecstasy) Negative (Negative) U Benzodiazepines Scrn Negative (Negative) Urine Cocaine Screen Negative (Negative) U Marijuana (THC) Screen Positive H (Negative) Chlamy pneumoniae PCR Not detected (Not Detect) Adenovirus (PCR) Not detected (Not Detect) B.parapertussis DNA PCR Not detected (Not Detect) Coronavirus OC43 (PCR) Not detected (Not Detect) Coronavirus HKU1 (PCR) Not detected (Not Detect) Coronavirus 229E (PCR) Not detected (Not Detect) COVID-19 PCR Coronavirus NL63 (PCR) Not detected (Not Detect) Human Metapneumovir PCR Not detected (Not Detect) Influenza Type A (PCR) Not detected (Not Detect) Influenza Type B (PCR) Not detected (Not Detect) M. pneumoniae (PCR) Not detected (Not Detect) Parainfluenza 1 (PCR) Not detected (Not Detect) Parainfluenza 2 (PCR) Not detected (Not Detect) Parainfluenza 3 (PCR) Not detected (Not Detect) Parainfluenza 4 (PCR) Not detected (Not Detect) RSV (PCR) Not detected (Not Detect) Entero/Rhino (PCR) Not detected (Not Detect) Point of Care Testing Test Results Negative Urine Dip Bedside Urine Glucose Negative Bedside Urine Bilirubin - Negative Bedside Urine Ketone - Negative Urine Specific [place] 1.010 Bedside Urine Occult Blood - Negative Bedside Urine pH 6 Bedside Urine Protein +/- 15 Bedside Urine Urobilinogen - Negative Bedside Urine Nitrite - Negative Bedside Urine Leukocytes - Negative Esterase MDM Narrative Medical decision making narrative: Case was discussed at length and decision to order PE study was made with patients clinical symptoms and based on elevated Ddimer, BNP and CRP and persistent tachycardia in department. CT shows ground glass opacities concerning for covid but also moderate sized pericardial effusion and enlarged pulmonary arterial trunk which could be seen with pulmo nary hypertension. Case was discussed with PCP service who asked for additional consultation. Hospitalist requested cardiology consult and cardiology, Dr. Guerra recommended transfer. Patient otherwise stable and transferred to [facility] for further treatment. Discharge Plan Departure Patient Disposition: [facility] Clinical Impression: Pericardial effusion without cardiac tamponade, Atypical pneumonia Dyspnea Qualifiers: Dyspnea type: unspecified Qualified Code(s): R06.00 - Dyspnea, unspecified Heart failure Qualifiers: Heart failure type: unspecified Heart failure chronicity: unspecified Qualified Code(s): I50.9 - Heart failure, unspecified Discharge Date/Time: 12/07/19 22:26 Prescriptions: No Action albuterol sulfate 90 mcg/actuation HFA aerosol inhaler 2 puff INHALATION Q4-6H PRN (Reason: shortness of breath or wheezing) Qty: 18 RF: 0 Referrals: Gume Stauffer MD [Primary Care Provider] -
--- NOTE | 2019-12-07 13:41 | PC.NURSE ---
+shortness of breath, denies fever,coughing. treated with albuterol for bronchitis.+smoker not better.
[2019-12-07 13:45] LABS: Add Manual Diff / Slide Review NO; Basophils Absolute Auto 200 /uL (0-100); Basophils Percent Auto 1.3 % (0-2); Eosinophils Absolute Auto 200 /uL (0-450); Eosinophils Percent Auto 1.7 % (2-4); Hematocrit 44.8 % (36-46); Hemoglobin 14.8 g/dL (12.0-16.0); Lymphocytes Absolute Auto 3200 /uL (1100-4500); Lymphocytes Percent Auto 27.1 % (25-40); Mean Corpuscular Hemoglobin 30.2 PG (26-34); Mean Corpuscular Volume 91.5 fL (80-100); Monocytes Absolute Auto 900 /uL (0-900); Monocytes Percent Auto 7.8 % (3-14); Neutrophils Absolute Auto 7400 /uL (1500-7000); Neutrophils Percent Auto 62.1 % (50-75); Platelet Count 296 X10^3/uL (150-400); Red Cell Distribution Width 14.4 % (11.6-14.8); White Blood Cell Count 11.9 X10^3/uL (4.5-11.0)
[2019-12-07 13:57] LABS: D Dimer 703 ng/mL (<230)
[2019-12-07] MEDS: SODIUM CHLORIDE 0.9% 1,000 ML 125 ML IV (13:57)
[2019-12-07] MEDS: ACETAMINOPHEN 325 MG TABLET 650 MG PO (13:57)
[2019-12-07 13:58] LABS: Lactate (Lactic Acid) 1.5 mmol/L (0.7-2.1)
[2019-12-07 14:01] LABS: Alanine Aminotransferase 47 IU/L (<35); Albumin 3.8 g/dL (3.5-5.0); Albumin Globulin Ratio 1.2 (1.0-2.8); Alkaline Phosphatase 102 U/L (38-126); Aspartate Aminotransferase 54 IU/L (14-36); BUN Creatinine Ratio 23.6 (6-22); Bilirubin Total 1.1 mg/dL (0.2-1.3); Blood Urea Nitrogen 17 mg/dL (7-17); Calcium 9.1 mg/dL (8.4-10.2); Carbon Dioxide 24 mmol/L (22-32); Chloride 104 mmol/L (98-107); Creatine Kinase 129 U/L (30-135); Estimated Glomerular Filt Rate > 60.0 mL/min (>60); Globulin 3.2 g/dL (1.7-4.1); Glucose 107 mg/dL (70-100); HEMOLYSIS < 15 (0-50); Lactate Dehydrogenase 848 U/L (313-618); Potassium 4.8 mmol/L (3.4-5.1); Sodium 136 mmol/L (137-145)
--- NOTE | 2019-12-07 14:09 | DI.CT.S_ITS ---
PROCEDURE: CT ANGIO CHEST PE PROTOCOL INDICATIONS: dyspnea, sob, elevated d dimer TECHNIQUE: After the administration of intravenous contrast, 2 mm thick sections acquired from the pulmonary apices to the posterior costophrenic angles. 3-dimensional maximum intensity projection (MIP) coronal and sagittal reformats were then acquired through the thorax. For radiation dose reduction, the following was used: automated exposure control, adjustment of mA and/or kV according to patient size. COMPARISON: None. FINDINGS: Image quality: Excellent. Pulmonary arteries: The main pulmonary arterial trunk is enlarged and measures 3.8 cm in diameter (image 62, series 4). No intraluminal filling defects within it the main pulmonary arterial trunk, lobar branches, and subsegmental lobar branches are identified to suggest a pulmonary embolism. Lungs and pleura: There is a small right-sided pleural effusion and associated mild atelectasis. Groundglass attenuation within the bilateral suprahilar regions of the upper lobes are evident. No lung mass is identified. However, there is a 3 mm subpleural pulmonary nodule identified on the posterior aspect of the left upper lobe (image 30, series 4). No pneumothorax or large area of pulmonary consolidation is identified. Mediastinum: The heart is normal in size. However, there is a moderate-sized pericardial effusion.. No mediastinal or hilar adenopathy. Thoracic aorta is normal in caliber and enhancement. Esophagus is normal in caliber, without hiatal hernia. Bones and chest wall: No suspicious bony lesions. Ribs and thoracic spine appear intact throughout. Thyroid gland is not enlarged were adequately evaluated.. No axillary or supraclavicular adenopathy. Abdomen: Visualized upper abdominal solid organs appear normal in the early arterial phase of enhancement. IMPRESSION: 1. No evidence of pulmonary emboli. 2. Patchy areas of groundglass attenuation within the upper lobes is nonspecific. Differential diagnostic considerations would include atypical infections such as bronchopneumonia or pulmonary edema. Hypersensitivity pneumonitis could also potentially have this appearance. 3. Small right-sided pleural effusion and associated atelectasis. 4. Moderate-sized pericardial effusion. 5. Enlarged main pulmonary arterial trunk is nonspecific, but often seen in the setting of pulmonary hypertension. Please correlate clinically. Dictated by: Jesse Christy M.D. on 12/07/2019 at 13:58 Approved by: Jesse Christy M.D. on 12/07/2019 at 14:01
[2019-12-07 14:13] LABS: NT-proBNP (BNP-Adult 18+) 1560 pg/mL (<125); Troponin I < 0.012 ng/mL (0.01-0.034)
[2019-12-07 14:16] LABS: CKMB % Relative Index 1.8 % (1.5-5.0); Creatine Kinase MB 2.26 ng/mL (<2.37)
[2019-12-07 14:23] LABS: Procalcitonin < 0.05 ng/mL (<0.5)
[2019-12-07 16:53] LABS: COVID19 -Nasal RAPID Negative (Negative)
[2019-12-07] MEDS: AZITHROMYCIN 500 MG in DEXTROSE 5% IN WATER 250 ML IV (17:28)
[2019-12-07] MEDS: CEFTRIAXONE 1 GM/50 ML FROZ.PIGGY IV (17:30)
[2019-12-07] MEDS: FUROSEMIDE 20 MG/2 ML VIAL IV (17:35)
[2019-12-07 18:18] LABS: C-Reactive Protein Quant 2.2 mg/dL (<1.0)
[2019-12-07] MEDS: ONDANSETRON 4 MG/2 ML INJ IV (18:46)
[2019-12-07 18:51] LABS: Erythrocyte Sedimentation Rate 3 MM/HR (0-20)
[2019-12-07 19:40] LABS: Adenovirus Not Detected (Not Detect); Coronavirus 229E Not Detected (Not Detect); Coronavirus HKU1 Not Detected (Not Detect); Coronavirus NL 63 Not Detected (Not Detect); Coronavirus OC43 Not Detected (Not Detect); Human Metapneumovirus Not Detected (Not Detect); Human Rhinovirus/Enterovirus Not Detected (Not Detect); Influenza A Not Detected (Not Detect); Influenza B Not Detected (Not Detect); Parainfluenza Virus 1 Not Detected (Not Detect); Parainfluenza Virus 2 Not Detected (Not Detect); Parainfluenza Virus 3 Not Detected (Not Detect); Parainfluenza Virus 4 Not Detected (Not Detect); Respiratory Syncytial Virus Not Detected (Not Detect)
[2019-12-07 19:41] LABS: Bordetella pertussis Not Detected (Not Detect); Chlamydophila pneumoniae Not Detected (Not Detect); Mycoplasma pneumoniae Not Detected (Not Detect)
[2019-12-07 20:15] LABS: UR Morphine/Opiate cutoff 300 Negative (Negative); Ur Creatinine 50 (Normal); Ur Specific Gravity 1.015 (Normal); Urine Amphetamines Positive (Negative); Urine Barbiturates Negative (Negative); Urine Benzodiazepines Negative (Negative); Urine Cocaine Negative (Negative); Urine MDMA Negative (Negative); Urine Methadone Negative (Negative); Urine Methamphetamines Positive (Negative); Urine Oxycodone Negative (Negative); Urine Phencyclidine Negative (Negative); Urine Tetrahydrocannabinol Positive (Negative); Urine Tricyclic Antidepressant Negative (Negative); Urine pH 5 (Normal)
== END 2019-12-07 22:26 | disposition short-term general hospital (02) ==
PROVIDERS: Emergency Provider Nurse Practitioner Family; PCP Family Medicine
DX: Z03.818 Encounter for observation for suspected exposure to other biological agents ruled out (principal); I31.3 Pericardial effusion (noninflammatory); J18.9 Pneumonia, unspecified organism; R06.00 Dyspnea, unspecified; I50.9 Heart failure, unspecified
CPT/HCPCS: 36415; 71045; 71275; 80053; 80305; 81003; 81025; 82550; 82553; 83605; 83615; 83880; 84145; 84484; 85025; 85379; 85651; 86140; 87040; 87633; 87635; 93005; 96361; 96365; 96368; 96375; 99285; J1940; J2405; Q9967

== ENCOUNTER 2024-06-12 08:39 | Emergency (ER) | payer MEDICARE, SELFPAY ==
[2024-06-12] VITALS (26 sets, daily range): BP systolic 111–150; BP diastolic 59–86; PULSE 52–112; RESP 11–27; TEMP 37; O2SAT 93–99; BMI 40.1
--- NOTE | 2024-06-12 08:53 | DI.RAD.S_ITS ---
PROCEDURE: XR CHEST 1V INDICATIONS: chest pain TECHNIQUE: One view of the chest was acquired. COMPARISON: [facility], CT, CT ANGIO CHEST PE PROTOCOL, 12/07/2019, 14:16. [facility], CR, XR CHEST 1V, 12/07/2019, 12:44. FINDINGS: Surgical changes and devices: None. Lungs and pleura: Lungs are clear. No pleural effusions or pneumothorax. Mediastinum: Mediastinal contours appear normal. Heart size is normal. Bones and chest wall: No suspicious bony lesions. Overlying soft tissues appear unremarkable. IMPRESSION: No acute pulmonary process. Dictated by: Nereida Pritchard M.D. on 06/12/2024 at 9:51 Approved by: Nereida Pritchard M.D. on 06/12/2024 at 9:51
--- NOTE | 2024-06-12 08:55 | EKG_ITS ---
[address] [address] Test Date: 2024-06-12 Pat Name: Katelynn Soares Department: Room: Gender: Female [employer] Specialist: DREW : 1990 Requested By: Order Number: [id number] Reading MD: Sukumar Torrez Measurements Intervals [place] Rate: 103 P: 47 NV: 160 QRS: 115 QRSD: 92 T: 20 QT: 354 QTc: 463 Interpretive Statements Sinus tachycardia Possible Right ventricular hypertrophy Electronically Signed On 06-12-2024 19:03:55 PST by Sukumar Torrez
--- NOTE | 2024-06-12 08:57 | DI.CT.S_ITS ---
PROCEDURE: CT ANGIO CHEST PE PROTOCOL INDICATIONS: Dyspnea TECHNIQUE: After the administration of intravenous contrast, 2 mm thick sections acquired from the pulmonary apices to the posterior costophrenic angles. 3-dimensional maximum intensity projection (MIP) coronal and sagittal reformats were then acquired through the thorax. For radiation dose reduction, the following was used: automated exposure control, adjustment of mA and/or kV according to patient size. COMPARISON: [facility], CT, CT ANGIO CHEST PE PROTOCOL, 12/07/2019, 14:16. FINDINGS: Image quality: Diagnostic. Pulmonary arteries: Marked enlargement of the pulmonary arteries. No intraluminal filling defects to suggest central pulmonary embolism. Lower Neck: No enlarged lymph nodes. Thyroid: No thyroid nodules which require sonographic follow up, per consensus guidelines. Axillae: No enlarged lymph nodes. Chest Wall: Unremarkable. Bones: Unremarkable. Lungs and Pleura: No pneumothorax or pleural effusions. Biapical centrilobular ground-glass, similar to prior. Heart: Heart size is normal. No pericardial effusion. Thoracic Vessels: No aortic aneurysm. Mediastinum and [place]: No enlarged lymph nodes. Esophagus: No wall thickening. No hiatal hernia. Upper Abdomen: Visualized upper abdomen solid organs and bowel loops appear normal. IMPRESSION: No pulmonary embolus. Marked dilation of the pulmonary artery, consistent with pulmonary hypertension. Upper lobe predominant centrilobular ground-glass, similar to prior, suggestive of hypersensitivity pneumonitis given stability. Recommend pulmonology referral. Dictated by: Franc Lorenzana M.D. on 06/12/2024 at 11:12 Approved by: Franc Lorenzana M.D. on 06/12/2024 at 11:16
--- NOTE | 2024-06-12 08:58 | ED.CHESTPAIN ---
HPI - Chest Pain General Chief Complaint: Chest Pain Stated Complaint: tightness, chest pain Time Seen by Provider: 06/12/24 08:50 Source: family Mode of arrival: Ambulatory Limitations: no limitations History of Present Illness HPI narrative: Patient here for chest tightness shortness of breath that started this morning when she awoke. No complaints when she went to bed last night. Patient has history of pulmonary hypertension diagnosed 4 years ago is on multiple medications including sildenafil which he took this morning. No nitrates to be given. Patient just had heart catheterization at [facility] May 24 of this month which we will try to get reports of. She states it was normal. She was getting heart catheterization in order to get establish care with pulmonary services at [facility]. She does not have active cardiology services. patient does have reproducible chest pain with deep breath on the left side and movement of her left arm. Also with twisting her trunk/chest Related Data Previous Rx's Medication Instructions Recorded albuterol sulfate 90 mcg/actuation 2 puff inhalation Q4-6H PRN 11/24/19 aerosol inhaler shortness of breath or wheezing #18 grams erythromycin 5 mg/gram (0.5 %) eye 0.5 inch ophthalmic (eye) 5XD 02/24/24 ointment Conjunctivitis #3.5 grams Allergies Allergy/AdvReac Type Severity Reaction Status Date / Time No Known Drug Allergies Allergy Verified 02/24/24 08:02 Review of Systems Review of Systems Narrative: GENERAL: Negative chills, fatigue, malaise, fever, sweats. HEENT: Negative sinus pain, ear pain, sore throat RESPIRATORY: Negative dyspnea, cough CARDIOVASCULAR: Positive chest pain, negative palpitations GASTROINTESTINAL: Negative nausea, vomiting, abdominal pain : Negative dysuria, frequency, hematuria MUSCULOSKELETAL: Negative muscle or bony pain SKIN: Negative rash, skin lesions NEUROLOGIC: Negative weakness, numbness ROS Unobtainable: All systems reviewed & are unremarkable except as noted in HPI and below Patient History Social History Smoking Status: Former smoker Smoking Status: Former smoker alcohol intake frequency: other Substance Use Type: marijuana Exam Narrative Exam Narrative: GENERAL: in no distress, not toxic not dyspneic HEAD: Normocephalic. EYES: Pupils equal round ENT: Mucous membranes moist. NECK: Trachea midline. CARDIOVASCULAR: Regular rate and rhythm RESPIRATORY: Clear to auscultation. Breath sounds equal bilaterally. No wheezes, rales, or rhonchi. Reproducible pain on deep breath left-sided chest and left-sided chest pain with movement of her left arm. GASTROINTESTINAL: Abdomen soft, non-tender EXTREMITIES: No gross deformities. BACK: No flank tenderness. NEURO: AOx4. SKIN: Warm and dry PSYCH: Not anxious, is cooperative Initial Vital Signs Initial Vital Signs: Vital Signs Temperature 98.6 F 06/12/24 08:46 Pulse Rate 104 H 06/12/24 08:46 Respiratory Rate 20 06/12/24 08:46 Blood Pressure 150/86 H 06/12/24 08:46 Pulse Oximetry 97 06/12/24 08:46 Oxygen Delivery Method Room Air 06/12/24 08:46 Scores HEART Score Heart Score history: Slightly Suspicious Heart Score EKG: Non-Specific repolarization disturbance Heart Score Age: < 45 years old Heart Score risk factors: 1-2 risk factors Heart Score troponin: < or = to normal limit Heart Score Total: 2 Course Orders Ordered: Discontinued Medications Acetaminophen (Acetaminophen 325 Mg Tablet) 975 mg PO NOW ONE Stop: 06/12/24 14:35 Last Admin: 06/12/24 14:39 Dose: 975 mg Documented By: MISSY Aspirin (Aspirin 81 Mg Chew Tab) 324 mg PO NOW ONE Stop: 06/12/24 08:54 Last Admin: 06/12/24 16:13 Dose: Not Given Documented By: MISSY Sodium Chloride (Normal Saline 0.9%) 500 mls @ 250 mls/hr IV BOLUS ONE Stop: 06/12/24 12:18 Last Admin: 06/12/24 10:55 Dose: 250 mls/hr Documented By: YAMILE Ketorolac Tromethamine (Ketorolac 30 Mg/Ml Vial) 15 mg IV NOW ONE Stop: 06/12/24 14:53 Last Admin: 06/12/24 14:56 Dose: 15 mg Documented By: MISSY Vital Signs Vital signs: Vital Signs - 8 hr 06/12/24 08:46 06/12/24 08:46 06/12/24 08:47 Temperature 98.6 F Pulse Rate 104 H Respiratory Rate 20 Blood Pressure 150/86 H 150/86 H Pulse Oximetry 97 93 Oxygen Delivery Method Room Air 06/12/24 08:47 06/12/24 09:04 06/12/24 09:05 Temperature Pulse Rate 108 H 112 H Respiratory Rate 21 Blood Pressure 149/65 H Pulse Oximetry 95 94 Oxygen Delivery Method 06/12/24 09:05 06/12/24 09:30 06/12/24 09:31 Temperature Pulse Rate 102 H 97 H 91 H Respiratory Rate 19 18 Blood Pressure Pulse Oximetry 96 96 96 Oxygen Delivery Method 06/12/24 09:31 06/12/24 09:50 06/12/24 09:50 Temperature Pulse Rate 102 H Respiratory Rate 15 Blood Pressure 113/66 120/64 Pulse Oximetry 94 Oxygen Delivery Method 06/12/24 10:00 06/12/24 10:00 06/12/24 10:30 Temperature Pulse Rate 92 H Respiratory Rate 17 Blood Pressure 123/66 112/62 Pulse Oximetry 95 Oxygen Delivery Method 06/12/24 10:30 06/12/24 11:21 06/12/24 11:22 Temperature Pulse Rate 91 H 90 85 Respiratory Rate 11 L 21 Blood Pressure Pulse Oximetry 96 98 96 Oxygen Delivery Method 06/12/24 11:22 06/12/24 11:30 06/12/24 11:30 Temperature Pulse Rate 90 Respiratory Rate 19 Blood Pressure 118/74 120/70 Pulse Oximetry 96 Oxygen Delivery Method 06/12/24 12:00 06/12/24 12:10 06/12/24 12:10 Temperature Pulse Rate 90 91 H Respiratory Rate Blood Pressure 111/63 Pulse Oximetry 97 98 Oxygen Delivery Method 06/12/24 12:30 06/12/24 13:00 06/12/24 13:30 Temperature Pulse Rate 89 93 H 85 Respiratory Rate 12 18 16 Blood Pressure Pulse Oximetry 97 98 98 Oxygen Delivery Method 06/12/24 14:00 06/12/24 14:04 06/12/24 14:33 Temperature Pulse Rate 86 86 Respiratory Rate 27 H 16 Blood Pressure 112/68 Pulse Oximetry 97 98 Oxygen Delivery Method 06/12/24 14:35 06/12/24 14:59 06/12/24 14:59 Temperature Pulse Rate 52 L 82 Respiratory Rate Blood Pressure 112/80 Pulse Oximetry 94 99 Oxygen Delivery Method 06/12/24 15:00 06/12/24 15:00 06/12/24 15:30 Temperature Pulse Rate 78 81 Respiratory Rate Blood Pressure 112/64 Pulse Oximetry 99 96 Oxygen Delivery Method 06/12/24 15:30 Temperature Pulse Rate Respiratory Rate Blood Pressure 115/60 Pulse Oximetry Oxygen Delivery Method MDM - Chest Pain Lab Data 06/12/24 08:53 06/12/24 08:53 Labs: Lab Results 06/12/24 06/12/24 06/12/24 Range/Units 08:53 09:05 09:30 WBC 10.1 (4.5-11.0) X10^3/uL RBC 4.67 (4.0-5.2) X10^6/uL Hgb 14.3 (12.0-16.0) g/dL Hct 42.5 (36-46) % MCV 90.9 (80-100) fL MCH 30.7 (26-34) PG MCHC 33.7 (30-36) % RDW 13.0 (11.6-14.8) % Plt Count 268 (150-400) X10^3/uL Neut % (Auto) 76.4 H (50-75) % Lymph % (Auto) 13.6 L (25-40) % [place] % (Auto) 6.8 (3-14) % Eos % (Auto) 2.6 (2-4) % Baso % (Auto) 0.6 (0-2) % Neut # (Auto) 7700 H (6006-3828) /uL Lymph # (Auto) 1400 (9828-9715) /uL [place] # (Auto) 700 (0-900) /uL Eos # (Auto) 300 (0-450) /uL Baso # (Auto) 100 (0-100) /uL PT 11.7 (9.4-12.5) SECONDS INR 1.0 (0.9-1.3) APTT 76 H* (25.1-36.5) SECONDS Sodium 138 (137-145) mmol/L Potassium 3.8 (3.4-5.1) mmol/L Chloride 106 (98-107) mmol/L Carbon Dioxide 23 (22-32) mmol/L BUN 12 (7-17) mg/dL Creatinine 0.80 (0.52-1.04) mg/dL Estimated GFR > 60 (>60) mL/min BUN/Creatinine Ratio 15.0 (6-22) Glucose 108 H (70-100) mg/dL Calcium 9.1 (8.4-10.2) mg/dL Magnesium 1.9 (1.6-2.3) mg/dL Total Bilirubin 0.6 (0.2-1.3) mg/dL AST 43 H (14-36) IU/L ALT 52 H (<35) IU/L Alkaline Phosphatase 95 (38-126) U/L Total Creatine Kinase 83 (30-135) U/L Troponin I < 0.012 (0.01-0.034) ng/mL NT-Pro-B Natriuret Pep 67 (<125) pg/mL Total Protein 7.8 (6.3-8.2) g/dL Albumin 4.5 (3.5-5.0) g/dL Globulin 3.3 (1.7-4.1) g/dL Albumin/Globulin Ratio 1.4 (1.0-2.8) Lipase 59 (23-300) U/L Urine Test Negative (Negative) U Opiates 300ng/mL cut Negative (Negative) Ur Oxycodone Screen Negative (Negative) Urine Methadone Screen Negative (Negative) Ur Barbiturates Screen Negative (Negative) U Tricyclic Antidepress Negative (Negative) Ur Phencyclidine Scrn Negative (Negative) Ur Amphetamines Screen Negative (Negative) U Methamphetamines Scrn Negative (Negative) Ur MDMA Scrn (Ecstasy) Negative (Negative) U Benzodiazepines Scrn Negative (Negative) Urine Cocaine Screen Negative (Negative) U Marijuana (THC) Screen Positive H (Negative) Urine pH Normal (Normal) Urine Specific Grace Normal (Normal) Ur Creatinine Normal (Normal) Chlamy pneumoniae PCR Not detected (Not Detect) Adenovirus (PCR) Not detected (Not Detect) B. pertussis DNA (PCR) Not detected (Not Detect) B.parapertussis DNA PCR Not detected (Not Detecte) Coronavirus OC43 (PCR) Not detected (Not Detect) Coronavirus HKU1 (PCR) Not detected (Not Detect) Coronavirus 229E (PCR) Not detected (Not Detect) SARS-CoV-2 (PCR) Not detected (Not Detecte) Coronavirus NL63 (PCR) Not detected (Not Detect) Human Metapneumovir PCR Not detected (Not Detect) Influenza Type A (PCR) Not detected (Not Detect) Influenza Type B (PCR) Not detected (Not Detect) M. pneumoniae (PCR) Not detected (Not Detect) Parainfluenza 1 (PCR) Not detected (Not Detect) Parainfluenza 2 (PCR) Not detected (Not Detect) Parainfluenza 3 (PCR) Not detected (Not Detect) Parainfluenza 4 (PCR) Not detected (Not Detect) RSV (PCR) Not detected (Not Detect) Entero/Rhino (PCR) Not detected (Not Detect) Urine Dip Bedside Urine Glucose Negative Bedside Urine Bilirubin - Negative Bedside Urine Ketone - Negative Urine Specific Grace 1.005 Bedside Urine Occult Blood - Negative Bedside Urine pH 6.0 Bedside Urine Protein - Negative Bedside Urine Urobilinogen - Negative Bedside Urine Nitrite - Negative Bedside Urine Leukocytes - Negative Esterase Imaging Data Chest x-ray: Radiologist's Impression: [address] [address] XRay Report Signed Patient: Katelynn Soares MR#: [id number] : 1990 Acct:[id number] Age/Sex: 33 / F Date of Service: 06/12/24 Loc: ED Accession Number: [id number] Procedure: XR chest 1V Ordering Provider: Juan Francisco Walsh MD PROCEDURE: XR CHEST 1V INDICATIONS: chest pain TECHNIQUE: One view of the chest was acquired. COMPARISON: [facility], CT, CT ANGIO CHEST PE PROTOCOL, 12/07/2019, 14:16. [facility], CR, XR CHEST 1V, 12/07/2019, 12:44. FINDINGS: Surgical changes and devices: None. Lungs and pleura: Lungs are clear. No pleural effusions or pneumothorax. Mediastinum: Mediastinal contours appear normal. Heart size is normal. Bones and chest wall: No suspicious bony lesions. Overlying soft tissues appear unremarkable. IMPRESSION: No acute pulmonary process. Dictated by: Nereida Pritchard M.D. on 06/12/2024 at 9:51 Approved by: Nereida Pritchard M.D. on 06/12/2024 at 9:51 [facility] Narrative Medical decision making narrative: Patient here for chest tightness shortness of breath that started this morning when she awoke. No complaints when she went to bed last night. Patient has history of pulmonary hypertension diagnosed 4 years ago is on multiple medications including sildenafil which he took this morning. No nitrates to be given. Patient just had heart catheterization at [facility] May 24 of this month which we will try to get reports of. She states it was normal. She was getting heart catheterization in order to get establish care with pulmonary services at [facility]. She does not have active cardiology services. patient does have reproducible chest pain with deep breath on the left side and movement of her left arm. Also with twisting her trunk/chest After history and exam CT chest EKG troponin BNP respiratory panel CBC CMP MDM Medical records reviewed: CT done here 4 years ago Differential considered: Includes but not limited to STEMI non-STEMI CHF pneumonia pulmonary hypertension pericardial effusion Lab Test results independently reviewed as above. Pertinent findings: WBC 10.1 hemoglobin 14.3 INR 1.0 sodium 138 potassium 3.8 BUN 12 creatinine 0.8 troponin less than 0.012 BNP 67 Independently reviewed EKG sinus tachycardia rate 103 possible right ventricular hypertrophy Imaging studies independently reviewed: Chest x-ray no acute finding Consultations: 1:[address] Vergara, cardiology services. Likely not cardiac in origin given reproducible pain. Refer to Pulmonary Services. 2:30 p.m.. Spoke with [facility] pulmonary services, Dr. Ashley Dorsey, she is reviewed patient's case. This is not pulmonary in origin. Not pulmonary hypertension origin. Patient had office visit April 23, 2024 as well as heart catheterization right heart catheterization May 24, 2024. Would recommend Toradol for relief given this is reproducible pain. Treatments: Tylenol aspirin normal salineToradol Re-evaluations: 4:07 p.m.. Patient states pain nearly gone after Toradol given. Reviewed with her my discussion with Cardiology and Pulmonary Services. Exam is reassuring with reproducible chest pain with deep breath and movement of her left arm. Return precautions reviewed. This is likely pleurisy. Not toxic at discharge. She desires discharge home Per heart rate 84 at time of discharge. Blood pressure 113/59 Discussion: appropriate for discharge home. Exam is reassuring. Low heart score. Pain is reproducible. Cardiology and Pulmonary Services consulted. Nearly pain-free with conservative treatment Toradol at time of discharge. She desires discharge home Diagnosis: pleurisy Discharge Plan Departure Patient Disposition: Home Clinical Impression: Pleurisy Instructions: DI for Pleurisy Activity Restrictions/Additional Instructions: your exam and laboratory studies and imaging studies are reassuring. Cardiology services as well as Pulmonary Service was contacted today. At this time no admission or transfer is indicated. You likely have pleurisy. Please read they discharge instructions and information. May continue Tylenol or ibuprofen for pain. Return if worse if any questions or concerns Prescriptions: No Action albuterol sulfate 90 mcg/actuation HFA aerosol inhaler 2 puff INHALATION Q4-6H PRN (Reason: shortness of breath or wheezing) Qty: 18 0RF erythromycin 5 mg/gram (0.5 %) ointment 0.5 inch ophthalmic (eye) 5XD Qty: 3.5 0RF Referrals: Gume Stauffer MD [Primary Care Provider] - Stand Alone Forms: Patient Portal/API/Survey
[2024-06-12 09:02] LABS: Add Manual Diff / Slide Review NO; Basophils Absolute Auto 100 /uL (0-100); Basophils Percent Auto 0.6 % (0-2); Eosinophils Absolute Auto 300 /uL (0-450); Eosinophils Percent Auto 2.6 % (2-4); Hematocrit 42.5 % (36-46); Hemoglobin 14.3 g/dL (12.0-16.0); Lymphocytes Absolute Auto 1400 /uL (1100-4500); Lymphocytes Percent Auto 13.6 % (25-40); Mean Corpuscular HGB Conc 33.7 % (30-36); Mean Corpuscular Hemoglobin 30.7 PG (26-34); Mean Corpuscular Volume 90.9 fL (80-100); Monocytes Absolute Auto 700 /uL (0-900); Monocytes Percent Auto 6.8 % (3-14); Neutrophils Absolute Auto 7700 /uL (1500-7000); Neutrophils Percent Auto 76.4 % (50-75); Platelet Count 268 X10^3/uL (150-400); Red Blood Cell Count 4.67 X10^6/uL (4.0-5.2); White Blood Cell Count 10.1 X10^3/uL (4.5-11.0)
[2024-06-12 09:15] LABS: Prothrombin Time 11.7 SECONDS (9.4-12.5)
[2024-06-12 09:20] LABS: Alanine Aminotransferase 52 IU/L (<35); Albumin 4.5 g/dL (3.5-5.0); Albumin Globulin Ratio 1.4 (1.0-2.8); Alkaline Phosphatase 95 U/L (38-126); Aspartate Aminotransferase 43 IU/L (14-36); Bilirubin Total 0.6 mg/dL (0.2-1.3); Blood Urea Nitrogen 12 mg/dL (7-17); Calcium 9.1 mg/dL (8.4-10.2); Carbon Dioxide 23 mmol/L (22-32); Chloride 106 mmol/L (98-107); Creatine Kinase 83 U/L (30-135); Estimated Glomerular Filt Rate > 60 mL/min (>60); Globulin 3.3 g/dL (1.7-4.1); Glucose 108 mg/dL (70-100); HEMOLYSIS < 15 (0-50); Lipase 59 U/L (23-300); Magnesium 1.9 mg/dL (1.6-2.3); Potassium 3.8 mmol/L (3.4-5.1); Sodium 138 mmol/L (137-145); Total Protein 7.8 g/dL (6.3-8.2)
[2024-06-12 09:27] LABS: PTT Partial Thromboplastin Tim 76 SECONDS (25.1-36.5)
[2024-06-12 09:32] LABS: NT-proBNP (BNP-Adult 18+) 67 pg/mL (<125); Troponin I < 0.012 ng/mL (0.01-0.034)
[2024-06-12 09:40] LABS: Ur Creatinine Normal (Normal); Ur Specific Gravity Normal (Normal); Urine pH Normal (Normal)
[2024-06-12 09:41] LABS: UR Morphine/Opiate cutoff 300 Negative (Negative); Urine Amphetamines Negative (Negative); Urine Barbiturates Negative (Negative); Urine Benzodiazepines Negative (Negative); Urine Cocaine Negative (Negative); Urine MDMA Negative (Negative); Urine Methadone Negative (Negative); Urine Methamphetamines Negative (Negative); Urine Oxycodone Negative (Negative); Urine Phencyclidine Negative (Negative); Urine Tetrahydrocannabinol Positive (Negative); Urine Tricyclic Antidepressant Negative (Negative)
[2024-06-12 10:18] LABS: Pregnancy Test Urine Negative (Negative)
[2024-06-12 10:30] LABS: Adenovirus Not Detected (Not Detect); B. parapertussis Not Detected (Not Detecte); Bordetella pertussis Not Detected (Not Detect); Chlamydophila pneumoniae Not Detected (Not Detect); Coronavirus 229E Not Detected (Not Detect); Coronavirus HKU1 Not Detected (Not Detect); Coronavirus NL 63 Not Detected (Not Detect); Coronavirus OC43 Not Detected (Not Detect); Human Metapneumovirus Not Detected (Not Detect); Human Rhinovirus/Enterovirus Not Detected (Not Detect); Influenza A Not Detected (Not Detect); Influenza B Not Detected (Not Detect); Mycoplasma pneumoniae Not Detected (Not Detect); Parainfluenza Virus 1 Not Detected (Not Detect); Parainfluenza Virus 2 Not Detected (Not Detect); Parainfluenza Virus 3 Not Detected (Not Detect); Parainfluenza Virus 4 Not Detected (Not Detect); Respiratory Syncytial Virus Not Detected (Not Detect); SARS- CoV-2 Not Detected (Not Detecte)
[2024-06-12] MEDS: SODIUM CHLORIDE 0.9% 500 ML 250 ML IV (10:55)
--- NOTE | 2024-06-12 13:47 | PC.NURSE ---
Patient states her pain increased from 5-6 on exertion. MD notified.
[2024-06-12] MEDS: ACETAMINOPHEN 325 MG TABLET 975 MG PO (14:39)
--- NOTE | 2024-06-12 14:51 | PC.NURSE ---
Patient stated throat was sore with swallowing. Throat was assessed for white patches and was not able to see any. Neck was palpated for tenderness and patient denied soreness.
[2024-06-12] MEDS: KETOROLAC 30 MG/ML VIAL 15 MG IV (14:56)
== END 2024-06-12 16:16 | disposition home or self-care (01) ==
PROVIDERS: Emergency Provider Emergency Medicine; PCP Family Medicine
DX: R09.1 Pleurisy (principal); R00.0 Tachycardia, unspecified; R06.02 Shortness of breath
CPT/HCPCS: 36415; 71045; 71275; 80053; 80305; 81003; 81025; 82550; 83690; 83735; 83880; 84484; 85025; 85610; 85730; 87633; 93005; 99284; J1885; Q9967

== ENCOUNTER 2024-11-16 19:40 | Emergency (ER) | payer MEDICARE, MEDICAID, SELFPAY ==
[2024-11-16 20:31] VITALS: BP 137/68; PULSE 83; RESP 20; TEMP 37.9; O2SAT 99; BMI 40.1
[2024-11-16 20:48] VITALS: TEMP 37.9
[2024-11-16] MEDS: ACETAMINOPHEN 325 MG TABLET 975 MG PO (20:48)
[2024-11-16] MEDS: IBUPROFEN 400 MG TABLET 800 MG PO (20:49)
[2024-11-16 22:56] VITALS: BP 134/60; PULSE 85; O2SAT 95
[2024-11-16 23:00] VITALS: BP 141/62; PULSE 91; RESP 18; O2SAT 96
[2024-11-16 23:30] VITALS: BP 116/65; PULSE 74; O2SAT 94
--- NOTE | 2024-11-16 23:57 | ED.GENADULT ---
HPI - General Adult General Chief complaint: Dental/Oral Stated complaint: jaw px, face is numb Time Seen by Provider: 11/16/24 23:03 Source: patient Mode of arrival: Ambulatory History of Present Illness HPI narrative: 34-year-old female with dental caries right lower premolar, awaiting dental appointment this in 5 days, has sensation of swelling to the right submandibular space, with some tingling numbness in that area. No injury or trauma. No fevers or chills. No trouble swallowing. No abnormal voice quality. Able to move neck up down [id number]. Related Data Home Medications Medication Instructions Recorded Confirmed ambrisentan 5 mg tablet 10 mg PO DAILY 08/05/24 08/05/24 bupropion HCl 150 mg 24 hr tablet, 450 mg PO QAM 08/05/24 08/05/24 extended release selexipag 600 mcg tablet 1,600 mcg PO DAILY 08/05/24 08/05/24 sildenafil (pulm.hypertension) 20 20 mg PO 3XD 08/05/24 08/05/24 mg tablet spironolactone 50 mg tablet 50 mg PO DAILY 08/05/24 08/05/24 torsemide 10 mg tablet 20 mg PO DAILY 08/05/24 08/05/24 Previous Rx's Medication Instructions Recorded albuterol sulfate 90 mcg/actuation 2 puff inhalation Q4-6H PRN 11/24/19 aerosol inhaler shortness of breath or wheezing #18 grams erythromycin 5 mg/gram (0.5 %) eye 0.5 inch ophthalmic (eye) 5XD 02/24/24 ointment Conjunctivitis #3.5 grams amoxicillin 875 mg tablet 875 mg PO BID dental infection 7 11/17/24 days #14 tabs Allergies Allergy/AdvReac Type Severity Reaction Status Date / Time No Known Drug Allergies Allergy Verified 08/05/24 13:33 Patient History Medical History (Updated 11/17/24 @ 00:26 by Jony Shultz MD) Presence of Mirena IUD Sleep apnea Obesity, Class III, BMI 40-49.9 (morbid obesity) Pulmonary hypertension Surgical History (Updated 08/05/24 @ 16:39 by Carol Chambers DO) H/O cardiac catheterization S/P tonsillectomy Social History Smoking Status: Former smoker Smoking Status: Former smoker alcohol intake frequency: other Exam Narrative Exam Narrative: GENERAL: Well-developed patient, in mild distress. HEAD: Atraumatic. Normocephalic. EYES: Pupils equal round and reactive. Extraocular motions intact. No scleral icterus. No injection or drainage. ENT: Oropharynx with poor dentition, broken tooth right lower pre molar, no significant gingival swelling or buccal swelling. NECK: Trachea midline. Non tender CARDIOVASCULAR: Regular rate and rhythm without murmurs, gallops, or rubs. RESPIRATORY: Clear to auscultation. Breath sounds equal bilaterally. No wheezes, rales, or rhonchi. GASTROINTESTINAL: Abdomen soft, non-tender, nondistended. EXTREMITIES: No edema or joint tenderness. BACK: Nontender without deformity or crepitance. No flank tenderness. NEURO: AOx3. Motor functions grossly nonfocal SKIN: No rash or erythema of visible areas Initial Vital Signs Initial Vital Signs: Vital Signs Temperature 100.2 F H 11/16/24 20:31 Pulse Rate 83 11/16/24 20:31 Respiratory Rate 20 11/16/24 20:31 Blood Pressure 137/68 11/16/24 20:31 Pulse Oximetry 99 11/16/24 20:31 Oxygen Delivery Method Room Air 11/16/24 20:31 Course Orders Ordered: Discontinued Medications Acetaminophen (Acetaminophen 325 Mg Tablet) 975 mg PO NOW ONE Stop: 11/16/24 20:44 Last Admin: 11/16/24 20:48 Dose: 975 mg Documented By: SUNNY Acetaminophen (Acetaminophen 650 Mg Supp) 650 mg KS NOW ONE Stop: 11/16/24 20:44 Last Admin: 11/16/24 23:39 Dose: Not Given Documented By: JENNA Amoxicillin (Amoxicillin 250 Mg Capsule) 1,000 mg PO NOW ONE Stop: 11/17/24 00:05 Last Admin: 11/17/24 00:26 Dose: 1,000 mg Documented By: JENNA Ibuprofen (Ibuprofen 400 Mg Tablet) 800 mg PO NOW ONE Stop: 11/16/24 20:44 Last Admin: 11/16/24 20:49 Dose: 800 mg Documented By: SUNNY Vital Signs Vital signs: Vital Signs - 8 hr 11/16/24 22:56 11/16/24 22:56 11/16/24 23:00 Pulse Rate 85 Respiratory Rate Blood Pressure 134/60 141/62 H Pulse Oximetry 95 Oxygen Delivery Method 11/16/24 23:00 11/16/24 23:30 11/16/24 23:30 Pulse Rate 91 H 74 Respiratory Rate 18 Blood Pressure 116/65 Pulse Oximetry 96 94 Oxygen Delivery Method Room Air 11/17/24 00:00 11/17/24 00:00 11/17/24 00:30 Pulse Rate 76 Respiratory Rate 18 Blood Pressure 114/65 125/74 Pulse Oximetry 95 Oxygen Delivery Method 11/17/24 00:30 Pulse Rate 74 Respiratory Rate Blood Pressure Pulse Oximetry 95 Oxygen Delivery Method Medical Decision Making MDM Narrative Medical decision making narrative: Right lower dental pain with broken tooth premolar, reactive submandibular area adenitis suspected. Doubt salivary sialolith by history and examination. No significant swelling, hold steroids, hold advanced imaging at this time. Patient agreeable. Trial of antibiotics. First dose oral amoxicillin, prescription sent for further antibiotics to her pharmacy. Follow up with her dentist advised in 5 days as scheduled. Return precautions discussed. Discharge Plan Departure Patient Disposition: Home Clinical Impression: Dental caries Activity Restrictions/Additional Instructions: Right lower premolar broken tooth, with associated swelling and tingling/numbness sensation, likely odontogenic dental infection related. Trial of antibiotics for now. First dose oral amoxicillin given in the emergency department, further antibiotics course prescription sent to your pharmacy. Take antibiotics as directed. Take Tylenol and or Motrin as needed for pain control. We discussed advanced imaging such as facial CT scan, hold for now. Follow up with your dentist as planned this . Return to this/nearest emergency department for any change worsening symptoms or any concerns prior. Prescriptions: New amoxicillin 875 mg tablet 875 mg PO BID 7 Days Qty: 14 0RF No Action albuterol sulfate 90 mcg/actuation HFA aerosol inhaler 2 puff INHALATION Q4-6H PRN (Reason: shortness of breath or wheezing) Qty: 18 0RF erythromycin 5 mg/gram (0.5 %) ointment 0.5 inch ophthalmic (eye) 5XD Qty: 3.5 0RF bupropion HCl 150 mg tablet extended release 24 hr 450 mg PO QAM torsemide 10 mg tablet 20 mg PO DAILY spironolactone 50 mg tablet 50 mg PO DAILY sildenafil (pulm.hypertension) 20 mg tablet 20 mg PO 3XD selexipag 600 mcg tablet 1,600 mcg PO DAILY Rx Instructions: swallow whole; do not crush, chew, open, break/cut or dissolve ambrisentan 5 mg tablet 10 mg PO DAILY Referrals: Rashard Elena MD [Primary Care Provider] - Stand Alone Forms: Patient Portal/API/Survey
[2024-11-17] VITALS: BP 114/65; PULSE 76; RESP 18; O2SAT 95
[2024-11-17] MEDS: AMOXICILLIN 250 MG CAPSULE 1000 MG PO (00:26)
[2024-11-17 00:30] VITALS: BP 125/74; PULSE 74; O2SAT 95
--- NOTE | 2024-11-17 17:59 | PC.NURSE ---
Patient called this RN and stated that the pharmacy didn't have dexamethasone 1.5mg as ordered. Pharmacist states that they do have 2mg. This RN talked to Dr. Light who approved all the same verabage for verbal order to original ordered medication with only changing it to 2mg of dexamethasone instead.
== END 2024-11-17 00:38 | disposition home or self-care (01) ==
PROVIDERS: Emergency Provider Emergency Medicine; PCP Family Medicine
DX: K02.9 Dental caries, unspecified (principal)
CPT/HCPCS: 99283

== ENCOUNTER 2024-11-17 08:14 | Emergency (ER) | payer MEDICARE, MEDICAID, SELFPAY ==
[2024-11-17] VITALS (12 sets, daily range): BP systolic 96–156; BP diastolic 57–84; PULSE 89–117; RESP 20; TEMP 38.1–39.3; O2SAT 89–100; BMI 34.0
[2024-11-17 09:12] LABS: INR 1.2 (0.9-1.3); Prothrombin Time 13.9 SECONDS (9.4-12.5)
[2024-11-17] MEDS: SODIUM CHLORIDE 0.9% 1,000 ML 1000 ML IV (09:18)
[2024-11-17 09:20] LABS: Alanine Aminotransferase 38 IU/L (<35); Albumin 4.6 g/dL (3.5-5.0); Albumin Globulin Ratio 1.5 (1.0-2.8); Alkaline Phosphatase 77 U/L (38-126); Aspartate Aminotransferase 33 IU/L (14-36); BUN Creatinine Ratio 19.2 (6-22); Blood Urea Nitrogen 14 mg/dL (7-17); Calcium 9.3 mg/dL (8.4-10.2); Carbon Dioxide 21 mmol/L (22-32); Chloride 105 mmol/L (98-107); Estimated Glomerular Filt Rate > 60 mL/min (>60); Globulin 3.1 g/dL (1.7-4.1); Glucose 134 mg/dL (70-99); HEMOLYSIS < 15 (0-50); Lipase 58 U/L (23-300); Potassium 4.1 mmol/L (3.4-5.1); Sodium 136 mmol/L (137-145); Total Protein 7.7 g/dL (6.3-8.2)
[2024-11-17 09:35] LABS: PTT Partial Thromboplastin Tim 78 SECONDS (25.1-36.5)
[2024-11-17 09:36] LABS: Add Manual Diff / Slide Review NO; Basophils Absolute Auto 0 /uL (0-100); Basophils Percent Auto 0.2 % (0-2); Eosinophils Absolute Auto 0 /uL (0-450); Eosinophils Percent Auto 0.2 % (2-4); Hematocrit 39.7 % (36-46); Hemoglobin 13.4 g/dL (12.0-16.0); Lymphocytes Absolute Auto 600 /uL (1100-4500); Lymphocytes Percent Auto 3.7 % (25-40); Mean Corpuscular HGB Conc 33.6 % (30-36); Mean Corpuscular Hemoglobin 30.5 PG (26-34); Mean Corpuscular Volume 90.7 fL (80-100); Monocytes Absolute Auto 1100 /uL (0-900); Monocytes Percent Auto 6.8 % (3-14); Neutrophils Absolute Auto 15100 /uL (1500-7000); Neutrophils Percent Auto 89.1 % (50-75); Platelet Count 242 X10^3/uL (150-400); Red Blood Cell Count 4.38 X10^6/uL (4.0-5.2); Red Cell Distribution Width 13.2 % (11.6-14.8); White Blood Cell Count 16.9 X10^3/uL (4.5-11.0)
[2024-11-17 09:37] LABS: Procalcitonin 0.107 ng/mL (<0.5)
--- NOTE | 2024-11-17 10:16 | ED_ITS ---
HPI - General Adult General Chief complaint: Dental/Oral Stated complaint: Return ER-jaw pain and swelling. Getting worse. Time Seen by Provider: 11/17/24 10:15 Source: patient, RN notes reviewed and old records reviewed Mode of arrival: Ambulatory Limitations: no limitations History of Present Illness HPI narrative: 34-year-old female history of pulmonary hypertension dental caries presented last night for swelling and pain in the right lower jaw. Patient notes a tooth cracked about a week ago she was follow up with dentist in place but Monday started having issues. Was started on amoxicillin last night had 1st dose in the emergency department about 10 hours ago. Patient states she had fevers this morning increasing pain and swelling, she notes little bit of hoarseness no muffled voice. She states pain has increased as well. States swelling seems to be more the jaw region and outer area. She does not appreciate any swelling of her tongue or airway. No stridor. Patient states she was had some nausea but no vomiting. No chest pain or shortness of breath. She was had some redness on the outer skin. She has not had any drainage but she appreciates a lot of swelling at the gumline on the right. Patient has not has a lot of dental infections in the past but has had issues with dental caries. She was known history of pulmonary hypertension, is on Uptravi 1600 mcg twice daily, ambrisentan 10 mg daily, sildenafil/revatio 20 mg t.i.d., torsemide 20 mg daily, bupropion XL 40 and 50 mg daily, spironolactone 50 mg daily. Patient states she was had a prior heart catheterization about a month ago which she gets intermittently for surveillance. Denies any drug allergies. Former smoker, no regular alcohol, denies any other recreational drugs. Follows at [facility] for her pulmonary hypertension. Related Data Home Medications Medication Instructions Recorded Confirmed ambrisentan 5 mg tablet 10 mg PO DAILY 08/05/24 08/05/24 bupropion HCl 150 mg 24 hr tablet, 450 mg PO QAM 08/05/24 08/05/24 extended release selexipag 600 mcg tablet 1,600 mcg PO DAILY 08/05/24 08/05/24 sildenafil (pulm.hypertension) 20 20 mg PO 3XD 08/05/24 08/05/24 mg tablet spironolactone 50 mg tablet 50 mg PO DAILY 08/05/24 08/05/24 torsemide 10 mg tablet 20 mg PO DAILY 08/05/24 08/05/24 Previous Rx's Medication Instructions Recorded albuterol sulfate 90 mcg/actuation 2 puff inhalation Q4-6H PRN 11/24/19 aerosol inhaler shortness of breath or wheezing #18 grams erythromycin 5 mg/gram (0.5 %) eye 0.5 inch ophthalmic (eye) 5XD 02/24/24 ointment Conjunctivitis #3.5 grams amoxicillin 875 mg tablet 875 mg PO BID dental infection 7 11/17/24 days #14 tabs amoxicillin 875 mg-potassium 1 tab PO BID #20 tabs 11/17/24 clavulanate 125 mg tablet dexamethasone 1.5 mg (21 tabs) See Rx Instructions PO .COMPLEX 11/17/24 tablets in a dose pack #21 ea meloxicam 7.5 mg tablet 7.5 mg PO BID PRN pain #14 tabs 11/17/24 Allergies Allergy/AdvReac Type Severity Reaction Status Date / Time No Known Drug Allergies Allergy Verified 08/05/24 13:33 Review of Systems Review of Systems ROS Unobtainable: All systems reviewed & are unremarkable except as noted in HPI and below Patient History Medical History Presence of Mirena IUD Sleep apnea Obesity, Class III, BMI 40-49.9 (morbid obesity) Pulmonary hypertension Surgical History H/O cardiac catheterization S/P tonsillectomy Social History Smoking Status: Never smoker Smoking Status: Never smoker alcohol intake frequency: other Exam Narrative Exam Narrative: GEN: well nourished, well appearing female, alert and oriented x 3, patient appears to be in [id number] distress. HEENT: Atraumatic, pupils are equal round reactive to light, extraocular movements are intact, nares are clear, TMs are clear with no fluid, there is no conjunctival pallor. Throat is clear without any exudates, erythema, tonsillar enlargement or uvular deviation, patient does have some swelling but no obvious fluid collection at the right lower gum, there is some swelling and erythema of the right lower jaw, no palpable mass, nodular abscess, patient oropharynx is clear without any swelling of the tongue or airway, no trismus, slightly hoarse no muffled voice. No stridor no difficulty with secretions. Patient has some mild cervical lymphadenopathy the right. HEART: Regular rate and rhythm without murmur, clicks, rubs. LUNGS:Lungs clear to auscultation, no wheezes, rales, crackles, chest moves symmetrically ABD:bowel sounds normal, soft, non-tender, no guarding, rebound, rigidity, no masses noted, no hepatosplenomegaly MSCL: Non-tender, no muscle atrophy, muscles strength 5/5 upper and lower extremities, full range of motion, normal gait NEURO:CN 2-12 intact, sensation normal. Initial Vital Signs Initial Vital Signs: Vital Signs Temperature 100.6 F H 11/17/24 08:30 Pulse Rate 117 H 11/17/24 08:30 Respiratory Rate 20 11/17/24 08:30 Blood Pressure 156/76 H 11/17/24 08:30 Pulse Oximetry 100 11/17/24 08:30 Oxygen Delivery Method Room Air 11/17/24 08:30 Course Orders Ordered: ED Orders 11/17/24 09:37 Blood Culture Stat 11/17/24 10:25 CT soft tissue neck w con Stat Discontinued Medications Acetaminophen (Acetaminophen 325 Mg Tablet) 975 mg PO NOW ONE Stop: 11/17/24 11:05 Last Admin: 11/17/24 11:21 Dose: 975 mg Documented By: HARMEET Sodium Chloride (Normal Saline 0.9%) 1,000 mls @ 1,000 mls/hr IV BOLUS ONE Stop: 11/17/24 09:58 Last Infusion: 11/17/24 10:59 Dose: 0 mls/hr Documented By: Infusion: 11/17/24 10:33 Dose: 1,000 mls/hr Documented By: Infusion: 11/17/24 09:39 Dose: 0 mls/hr Documented By: Admin: 11/17/24 09:18 Dose: 1,000 mls/hr Documented By: HARMEET Ampicillin Sodium/Sulbactam (Sodium 3 gm/ Sodium Chloride) 100 mls @ 200 mls/hr IV NOW ONE Stop: 11/17/24 10:26 Last Infusion: 11/17/24 11:48 Dose: Infused Documented By: Admin: 11/17/24 10:34 Dose: 200 mls/hr Documented By: HARMEET Dexamethasone 20 mg/ Sodium (Chloride) 55 mls @ 220 mls/hr IV NOW ONE Stop: 11/17/24 10:26 Last Infusion: 11/17/24 10:55 Dose: Infused Documented By: Admin: 11/17/24 10:38 Dose: 220 mls/hr Documented By: HARMEET Ketorolac Tromethamine (Ketorolac 30 Mg/Ml Vial) 15 mg IV NOW ONE Stop: 11/17/24 10:27 Last Admin: 11/17/24 10:34 Dose: 15 mg Documented By: HARMEET Ondansetron HCl (Ondansetron 4 Mg/2 Ml Inj) 4 mg IV NOW PRN PRN Reason: Nausea And Vomiting Last Admin: 11/17/24 11:20 Dose: 4 mg Documented By: HARMEET Ondansetron HCl (Ondansetron 4 Mg Odt) 4 mg SL NOW PRN PRN Reason: Nausea And Vomiting Vital Signs Vital signs: Vital Signs - 8 hr 11/17/24 10:31 11/17/24 11:01 11/17/24 11:01 Temperature 102.8 F H Pulse Rate 103 H 100 H Blood Pressure 124/60 Pulse Oximetry 93 94 11/17/24 11:21 11/17/24 11:30 11/17/24 11:30 Temperature 102.8 F H Pulse Rate 89 Blood Pressure 120/67 Pulse Oximetry 95 11/17/24 12:00 11/17/24 12:00 11/17/24 12:29 Temperature Pulse Rate 96 H Blood Pressure 115/67 96/57 L Pulse Oximetry 89 L 11/17/24 12:29 Temperature 101.2 F H Pulse Rate 92 H Blood Pressure Pulse Oximetry 94 Medical Decision Making Lab Data 11/17/24 08:50 11/17/24 08:50 Labs: Lab Results 11/17/24 Range/Units 08:50 WBC 16.9 H (4.5-11.0) X10^3/uL RBC 4.38 (4.0-5.2) X10^6/uL Hgb 13.4 (12.0-16.0) g/dL Hct 39.7 (36-46) % MCV 90.7 (80-100) fL MCH 30.5 (26-34) PG MCHC 33.6 (30-36) % RDW 13.2 (11.6-14.8) % Plt Count 242 (150-400) X10^3/uL Neut % (Auto) 89.1 H (50-75) % Lymph % (Auto) 3.7 L (25-40) % [place] % (Auto) 6.8 (3-14) % Eos % (Auto) 0.2 L (2-4) % Baso % (Auto) 0.2 (0-2) % Neut # (Auto) 18959 H (1715-3933) /uL Lymph # (Auto) 600 L (4527-5052) /uL [place] # (Auto) 1100 H (0-900) /uL Eos # (Auto) 0 (0-450) /uL Baso # (Auto) 0 (0-100) /uL PT 13.9 H (9.4-12.5) SECONDS INR 1.2 (0.9-1.3) APTT 78 H* (25.1-36.5) SECONDS Sodium 136 L (137-145) mmol/L Potassium 4.1 (3.4-5.1) mmol/L Chloride 105 (98-107) mmol/L Carbon Dioxide 21 L (22-32) mmol/L BUN 14 (7-17) mg/dL Creatinine 0.73 (0.52-1.04) mg/dL Estimated GFR > 60 (>60) mL/min BUN/Creatinine Ratio 19.2 (6-22) Glucose 134 H (70-99) mg/dL Lactate 1.0 (0.7-2.1) mmol/L Calcium 9.3 (8.4-10.2) mg/dL Total Bilirubin 1.0 (0.2-1.3) mg/dL AST 33 (14-36) IU/L ALT 38 H (<35) IU/L Alkaline Phosphatase 77 (38-126) U/L Total Protein 7.7 (6.3-8.2) g/dL Albumin 4.6 (3.5-5.0) g/dL Globulin 3.1 (1.7-4.1) g/dL Albumin/Globulin Ratio 1.5 (1.0-2.8) Lipase 58 (23-300) U/L Procalcitonin 0.107 (<0.5) ng/mL MDM Narrative Medical decision making narrative: 34-year-old female presents febrile tachycardic with recent suspected dental infection started on amoxicillin not quite 12 hours ago. Had 1st dose of amoxicillin a 1000 mg last night here in the emergency department. Labs show white count of 16.9, hemoglobin is 13 platelets are 242. PTT is 78 patient was elevated in June 16 as well PT is 1.2. Carbon dioxide is 21 sodium is 136 otherwise appropriate electrolytes, BUN creatinine are normal glucose is 134 lactate 1 ALT is 38 otherwise normal LFTs. Procalcitonin 0.107. Patient was blood cultures pending Imaging, CT soft tissue shows cellulitis/myositis overlying right mandible without evidence of mature abscess likely odontogenic in origin associated right level 2A and submandibular adenopathy. Patient received 500 mL bolus, she was not a candidate for 30 cc/kilos bolus for sepsis as she was a history of pulmonary hypertension has to monitor her fluid status with diuretics. She received dexamethasone, Toradol and Unasyn. Patient's fever increased, was given acetaminophen that is is that is been 6 hours. Pain has improved on rechecked. Patient had acetaminophen, Toradol, Zofran, dexamethasone and Unasyn here in the department as well as a 500 mL bolus. Patient's O2 did dip while she falls asleep but she normally uses a CPAP at nighttime it was only when she was asleep here in the department she was not had any narcotics. Patient does not meet septic criteria discussed observation but patient overall appears well, she states swelling is improved. She is feeling much better at this time her heart rate has not improved. Patient feels comfortable to return home. Discussed strict return precautions. Discharge Plan Departure Patient Disposition: Home Clinical Impression: Cellulitis of face, Dental infection Activity Restrictions/Additional Instructions: Follow up with a dentist. You have cellulitis/myositis but no abscess on your imaging, CT imaging does note the associated dental caries. You did technically meet septic criteria upon arrival I think he will improve over the next 24 hours with antibiotics, steroids and medication but if you your symptoms or swelling are getting worse please return to the ER. Continue acetaminophen a 1000 mg every 6 hours, you can take meloxicam 1 tablet every 12 hours as needed for pain. Do not take ibuprofen, NSAIDs or similar medications with the meloxicam. You can also use warm compresses to the area. Take oral antibiotics until completed. I have sent a new prescription with broader coverage to the pharmacist. Do not feel your initial amoxicillin prescription. You can start the oral antibiotic after you pick it up. Take oral steroids until completed. Prescription sent to [facility] in [place]. Please return if you have persistent fevers, if you have any new increasing swelling, increasing redness, increasing pain, swelling of the tongue, airway, any new changes to your voice, difficulty opening your mouth or jaw, difficulty breathing or any other new or concerning changes. Prescriptions: New amoxicillin-pot clavulanate 875-125 mg tablet 1 tab PO BID Qty: 20 0RF meloxicam 7.5 mg tablet 7.5 mg PO BID PRN (Reason: pain) Qty: 14 0RF dexamethasone 1.5 mg (21 tabs) tablets,dose pack See Rx Instructions .ROUTE .COMPLEX Qty: 21 0RF Rx Instructions: 6 tabs p.o. x1 day, then 5 tabs p.o. x1 day, then 4 tablets p.o. x1 day, then 3 tabs p.o. x1 day, then 2 tabs p.o. x1 day, then 1 tab p.o. x1 day No Action albuterol sulfate 90 mcg/actuation HFA aerosol inhaler 2 puff INHALATION Q4-6H PRN (Reason: shortness of breath or wheezing) Qty: 18 0RF erythromycin 5 mg/gram (0.5 %) ointment 0.5 inch ophthalmic (eye) 5XD Qty: 3.5 0RF bupropion HCl 150 mg tablet extended release 24 hr 450 mg PO QAM torsemide 10 mg tablet 20 mg PO DAILY spironolactone 50 mg tablet 50 mg PO DAILY sildenafil (pulm.hypertension) 20 mg tablet 20 mg PO 3XD selexipag 600 mcg tablet 1,600 mcg PO DAILY Rx Instructions: swallow whole; do not crush, chew, open, break/cut or dissolve ambrisentan 5 mg tablet 10 mg PO DAILY amoxicillin 875 mg tablet 875 mg PO BID 7 Days Qty: 14 0RF Referrals: Rashard Elena MD [Primary Care Provider] - Stand Alone Forms: Patient Portal/API/Survey
--- NOTE | 2024-11-17 10:25 | DI.CT.S_ITS ---
PROCEDURE: CT SOFT TISSUE NECK W CON INDICATIONS: swelling, pain, right lower jaw, fever, abscess vs celluliti TECHNIQUE: After the administration of intravenous contrast, 3.0 mm axial sections acquired from the sella to the aortic arch. Additional oblique axial 3.0 mm sections acquired through the pharynx. 3 mm thick coronal and sagittal reformats were generated. For radiation dose reduction, the following was used: automated exposure control. COMPARISON: None. FINDINGS: Skull Base: The visualized intracranial contents, skull, and orbits are unremarkable. Visualized paranasal sinuses are clear. Pharynx and Larynx: The nasopharyngeal airway is patent and midline. Parapharyngeal soft tissues including palatine tonsils and base of the tongue are normal. Retropharyngeal space unremarkable. Normal appearance of the false and true vocal cords. Muscles and Fascial Planes: Edema and soft tissue swelling noted overlying the right mandible. No focal abscess. The right masseter muscle also appears asymmetrically swollen compared to the left. Associated carious disease noted involving the dentition. Lymph Nodes: Right level 2A node measures 1.4 x 1.7 cm. Submandibular adenopathy is slightly smaller. Vasculature: Unremarkable. Submandibular and Parotid Glands: Normal in size and attenuation. Thyroid: Unremarkable. No enlarged or calcified nodules. Bones: No acute fracture. No osteolytic or blastic lesion is evident. Normal bone mineralization. Lung Apices: The visualized lung apices are clear. IMPRESSION: Cellulitis/myositis overlying the right mandible without evidence of mature abscess. Likely odontogenic in origin. Associated right level 2A and submandibular adenopathy Approved by: Joaquin Nugent M.D. on 11/17/2024 at 11:10
[2024-11-17] MEDS: KETOROLAC 30 MG/ML VIAL 15 MG IV (10:34)
[2024-11-17] MEDS: AMPICILLIN/SULBACTAM 3 GM 3 GM in SODIUM CHLORIDE 0.9% 100 ML IV (10:34)
[2024-11-17] MEDS: dexAMETHasone 20 MG in SODIUM CHLORIDE 0.9% 50 ML 220 MG IV (10:38)
[2024-11-17] MEDS: ONDANSETRON 4 MG/2 ML INJ IV (11:20)
[2024-11-17] MEDS: ACETAMINOPHEN 325 MG TABLET 975 MG PO (11:21)
--- NOTE | 2024-11-17 12:22 | PC.NURSE ---
PT SPO2 is 88% while asleep. Pt reports having sleep apnea and wears a BiPap at night.
== END 2024-11-17 12:43 | disposition home or self-care (01) ==
PROVIDERS: Emergency Provider Emergency Medicine; PCP Family Medicine
DX: L03.211 Cellulitis of face (principal); K04.7 Periapical abscess without sinus; R11.0 Nausea
CPT/HCPCS: 36415; 70491; 80053; 83605; 83690; 84145; 85025; 85610; 85730; 87040; 96365; 96368; 96375; 99284; J0295; J1100; J1885; J2405; Q9967

== ENCOUNTER 2025-02-21 15:42 | Emergency (ER) | payer MEDICARE, MEDICAID, SELFPAY ==
[2025-02-21] VITALS (12 sets, daily range): BP systolic 98–130; BP diastolic 57–80; PULSE 67–84; RESP 14–24; TEMP 36.6; O2SAT 96–98; BMI 39.0
--- NOTE | 2025-02-21 15:48 | DI.RAD.S_ITS ---
PROCEDURE: XR CHEST 1V INDICATIONS: Chest Pain TECHNIQUE: One view of the chest was acquired. COMPARISON: [facility], CR, XR CHEST 1V, 06/12/2024, 9:08. FINDINGS: Surgical changes and devices: None. Lungs and pleura: Lungs are clear. No pleural effusions or pneumothorax. Mediastinum: Mediastinal contours appear normal. Heart size is normal. Bones and chest wall: No suspicious bony lesions. Overlying soft tissues appear unremarkable. IMPRESSION: No acute cardiopulmonary pathology. Dictated by: Priyank Guillory M.D. on 02/21/2025 at 16:10 Approved by: Priyank Guillory M.D. on 02/21/2025 at 16:10
--- NOTE | 2025-02-21 15:48 | EKG_ITS ---
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
[2025-02-21] MEDS: ASPIRIN 81 MG CHEW TAB 324 MG PO (15:54)
[2025-02-21 16:11] LABS: Add Manual Diff / Slide Review NO; Hematocrit 40.0 % (36-46); Hemoglobin 13.5 g/dL (12.0-16.0); Lymphocytes Absolute Auto 1600 /uL (1100-4500); Mean Corpuscular HGB Conc 33.7 % (30-36); Mean Corpuscular Hemoglobin 30.2 PG (26-34); Mean Corpuscular Volume 89.5 fL (80-100); Platelet Count 265 X10^3/uL (150-400)
[2025-02-21 16:19] LABS: INR 1.0 (0.9-1.3); Prothrombin Time 11.2 SECONDS (9.4-12.5)
[2025-02-21 16:21] LABS: PTT Partial Thromboplastin Tim 59 SECONDS (25.1-36.5)
[2025-02-21 16:30] LABS: Alanine Aminotransferase 59 IU/L (<35); Albumin 4.7 g/dL (3.5-5.0); Albumin Globulin Ratio 1.4 (1.0-2.8); Alkaline Phosphatase 76 U/L (38-126); Blood Urea Nitrogen 14 mg/dL (7-17); Calcium 9.3 mg/dL (8.4-10.2); Carbon Dioxide 22 mmol/L (22-32); Chloride 106 mmol/L (98-107); Creatine Kinase 61 U/L (30-135); Estimated Glomerular Filt Rate > 60 mL/min (>60); Globulin 3.3 g/dL (1.7-4.1); Glucose 98 mg/dL (70-99); HEMOLYSIS < 15 (0-50); Lipase 68 U/L (23-300); Magnesium 2.1 mg/dL (1.6-2.3); Potassium 4.3 mmol/L (3.4-5.1); Sodium 138 mmol/L (137-145); Total Protein 8.0 g/dL (6.3-8.2)
[2025-02-21 16:40] LABS: NT-proBNP (BNP-Adult 18+) 49 pg/mL (<125); Troponin I < 0.012 ng/mL (0.01-0.034)
--- NOTE | 2025-02-21 16:47 | ED.CHESTPAIN ---
HPI - Chest Pain <Bayron Balderrama MD - Last Filed: 02/22/25 09:47> General Chief Complaint: Chest Pain Stated Complaint: chest pain, SOB - heart failure, covid positive Time Seen by Provider: 02/21/25 16:20 Source: patient Mode of arrival: Ambulatory Limitations: no limitations History of Present Illness HPI narrative: 34 years old female with history of obesity, pulmonary hypertension, last coronary artery angiogram was normal in May 2024 came in today complaining of left-sided chest pressure radiated to the left upper arm sometimes in left jaw off and on for the last 3 days along with shortness of breath, headaches. She also reported loose stool for the last 1 week without blood or mucus. She was diagnosis with COVID 9 days ago. She denied any nausea vomiting, dizziness, loss of consciousness, leg pain, leg swelling, abdominal pain, urine problem, hospitalization, history of blood clot, history of heart attack, heart stent, heart bypass surgery. She had been taking her medication regularly. Related Data Home Medications ?Medication ?Instructions ?Recorded ?Confirmed ambrisentan 5 mg tablet 10 mg PO DAILY 08/05/24 08/05/24 bupropion HCl 150 mg 24 hr tablet, 450 mg PO QAM 08/05/24 08/05/24 extended release selexipag 600 mcg tablet 1,600 mcg PO DAILY 08/05/24 08/05/24 sildenafil (pulm.hypertension) 20 20 mg PO 3XD 08/05/24 08/05/24 mg tablet spironolactone 50 mg tablet 50 mg PO DAILY 08/05/24 08/05/24 torsemide 10 mg tablet 20 mg PO DAILY 08/05/24 08/05/24 Previous Rx's ?Medication ?Instructions ?Recorded albuterol sulfate 90 mcg/actuation 2 puff inhalation Q4-6H PRN 11/24/19 aerosol inhaler shortness of breath or wheezing #18 grams erythromycin 5 mg/gram (0.5 %) eye 0.5 inch ophthalmic (eye) 5XD 02/24/24 ointment Conjunctivitis #3.5 grams amoxicillin 875 mg-potassium 1 tab PO BID #20 tabs 11/17/24 clavulanate 125 mg tablet dexamethasone 1.5 mg (21 tabs) See Rx Instructions PO .COMPLEX 11/17/24 tablets in a dose pack #21 ea meloxicam 7.5 mg tablet 7.5 mg PO BID PRN pain #14 tabs 11/17/24 Allergies Allergy/AdvReac Type Severity Reaction Status Date / Time No Known Drug Allergies Allergy Verified 02/21/25 15:50 Review of Systems <Bayron Balderrama MD - Last Filed: 02/22/25 09:47> Review of Systems Narrative: Positive for chest pain, shortness of breath, headache, loose stool. Negative for leg pain, leg swelling, loss of consciousness, dizziness, palpitation, nausea vomiting, abdominal pain, fever. Patient History <Bayron Balderrama MD - Last Filed: 02/22/25 09:47> Medical History Presence of Mirena IUD Sleep apnea Obesity, Class III, BMI 40-49.9 (morbid obesity) Pulmonary hypertension Surgical History H/O cardiac catheterization S/P tonsillectomy alcohol intake frequency: other Exam <Bayron Balderrama MD - Last Filed: 02/22/25 09:47> Narrative Exam Narrative: GENERAL: Cooperative. Well developed. No acute distress. HEAD: Atraumatic. Normocephalic. NECK: Trachea midline. Non tender CARDIOVASCULAR: Regular rate and rhythm without murmurs, gallops, or rubs. RESPIRATORY: Clear to auscultation. Breath sounds equal bilaterally. No wheezes, rales, or rhonchi. GASTROINTESTINAL: Abdomen soft, non-tender, nondistended. EXTREMITIES: No edema or joint tenderness. BACK: Nontender without deformity or crepitance. No flank tenderness. NEURO: AOx3. SKIN: No rash or erythema of visible areas Initial Vital Signs Initial Vital Signs: Vital Signs Pulse Rate 84 02/21/25 15:48 Pulse Oximetry 96 02/21/25 15:48 <Riley Montez DO - Last Filed: 02/21/25 20:34> Initial Vital Signs Initial Vital Signs: Vital Signs Pulse Rate 84 02/21/25 15:48 Pulse Oximetry 96 02/21/25 15:48 Scores <Bayron Balderrama MD - Last Filed: 02/22/25 09:47> HEART Score Heart Score Total: 1 <Riley Montez DO - Last Filed: 02/21/25 20:34> HEART Score Heart Score history: Slightly Suspicious Heart Score EKG: Normal Heart Score Age: < 45 years old Heart Score risk factors: 1-2 risk factors Heart Score troponin: < or = to normal limit Heart Score Total: 1 Course <Bayron Balderrama MD - Last Filed: 02/22/25 09:47> Orders Ordered: Discontinued Medications Aspirin (Aspirin 81 Mg Chew Tab) 324 mg PO NOW ONE Stop: 02/21/25 15:49 Last Admin: 02/21/25 15:54 Dose: 324 mg Documented By: JORGE Vital Signs Vital signs: Vital Signs - 8 hr 02/21/25 15:48 02/21/25 15:50 02/21/25 16:00 Temperature 97.8 F Pulse Rate 84 82 Respiratory Rate 14 Blood Pressure 130/77 122/80 Pulse Oximetry 96 96 Oxygen Delivery Method Room Air 02/21/25 16:00 02/21/25 16:30 02/21/25 16:30 Temperature Pulse Rate 81 73 Respiratory Rate 23 19 Blood Pressure 109/62 Pulse Oximetry 98 97 Oxygen Delivery Method 02/21/25 17:00 02/21/25 17:00 02/21/25 17:30 Temperature Pulse Rate 73 Respiratory Rate 17 Blood Pressure 101/61 101/58 L Pulse Oximetry 96 Oxygen Delivery Method Room Air 02/21/25 17:30 02/21/25 18:00 02/21/25 18:00 Temperature Pulse Rate 68 67 Respiratory Rate 23 19 Blood Pressure 98/57 L Pulse Oximetry 96 98 Oxygen Delivery Method 02/21/25 18:30 02/21/25 19:00 02/21/25 19:30 Temperature Pulse Rate 67 73 70 Respiratory Rate 20 24 Blood Pressure Pulse Oximetry 96 97 97 Oxygen Delivery Method 02/21/25 20:00 Temperature Pulse Rate 76 Respiratory Rate 23 Blood Pressure Pulse Oximetry 97 Oxygen Delivery Method <Riley Montez DO - Last Filed: 02/21/25 20:34> Orders Ordered: Discontinued Medications Aspirin (Aspirin 81 Mg Chew Tab) 324 mg PO NOW ONE Stop: 02/21/25 15:49 Last Admin: 02/21/25 15:54 Dose: 324 mg Documented By: JORGE Vital Signs Vital signs: Vital Signs - 8 hr 02/21/25 15:48 02/21/25 15:50 02/21/25 16:00 Temperature 97.8 F Pulse Rate 84 82 Respiratory Rate 14 Blood Pressure 130/77 122/80 Pulse Oximetry 96 96 Oxygen Delivery Method Room Air 02/21/25 16:00 02/21/25 16:30 02/21/25 16:30 Temperature Pulse Rate 81 73 Respiratory Rate 23 19 Blood Pressure 109/62 Pulse Oximetry 98 97 Oxygen Delivery Method 02/21/25 17:00 02/21/25 17:00 02/21/25 17:30 Temperature Pulse Rate 73 Respiratory Rate 17 Blood Pressure 101/61 101/58 L Pulse Oximetry 96 Oxygen Delivery Method Room Air 02/21/25 17:30 02/21/25 18:00 02/21/25 18:00 Temperature Pulse Rate 68 67 Respiratory Rate 23 19 Blood Pressure 98/57 L Pulse Oximetry 96 98 Oxygen Delivery Method 02/21/25 18:30 02/21/25 19:00 02/21/25 19:30 Temperature Pulse Rate 67 73 70 Respiratory Rate 20 24 Blood Pressure Pulse Oximetry 96 97 97 Oxygen Delivery Method 02/21/25 20:00 Temperature Pulse Rate 76 Respiratory Rate 23 Blood Pressure Pulse Oximetry 97 Oxygen Delivery Method MDM - Chest Pain <Bayron Balderrama MD - Last Filed: 02/22/25 09:47> Lab Data 02/21/25 16:00 02/21/25 16:00 Labs: Lab Results 02/21/25 02/21/25 Range/Units 16:00 18:13 WBC 8.1 (4.5-11.0) X10^3/uL RBC 4.47 (4.0-5.2) X10^6/uL Hgb 13.5 (12.0-16.0) g/dL Hct 40.0 (36-46) % MCV 89.5 (80-100) fL MCH 30.2 (26-34) PG MCHC 33.7 (30-36) % RDW 13.0 (11.6-14.8) % Plt Count 265 (150-400) X10^3/uL Neut % (Auto) 71.1 (50-75) % Lymph % (Auto) 19.2 L (25-40) % Wise % (Auto) 7.5 (3-14) % Eos % (Auto) 1.6 L (2-4) % Baso % (Auto) 0.6 (0-2) % Neut # (Auto) 5800 (2605-5351) /uL Lymph # (Auto) 1600 (8255-7689) /uL Wise # (Auto) 600 (0-900) /uL Eos # (Auto) 100 (0-450) /uL Baso # (Auto) 0 (0-100) /uL PT 11.2 (9.4-12.5) SECONDS INR 1.0 (0.9-1.3) APTT 59 H (25.1-36.5) SECONDS D-Dimer 529 H (<500) ng/ml Sodium 138 (137-145) mmol/L Potassium 4.3 (3.4-5.1) mmol/L Chloride 106 (98-107) mmol/L Carbon Dioxide 22 (22-32) mmol/L BUN 14 (7-17) mg/dL Creatinine 0.77 (0.52-1.04) mg/dL Estimated GFR > 60 (>60) mL/min BUN/Creatinine Ratio 18.2 (6-22) Glucose 98 (70-99) mg/dL Calcium 9.3 (8.4-10.2) mg/dL Magnesium 2.1 (1.6-2.3) mg/dL Total Bilirubin 0.5 (0.2-1.3) mg/dL AST 44 H (14-36) IU/L ALT 59 H (<35) IU/L Alkaline Phosphatase 76 (38-126) U/L Total Creatine Kinase 61 (30-135) U/L Troponin I < 0.012 < 0.012 (0.01-0.034) ng/mL NT-Pro-B Natriuret Pep 49 (<125) pg/mL Total Protein 8.0 (6.3-8.2) g/dL Albumin 4.7 (3.5-5.0) g/dL Globulin 3.3 (1.7-4.1) g/dL Albumin/Globulin Ratio 1.4 (1.0-2.8) Lipase 68 (23-300) U/L ECG Data Interpretation: EKG showed normal sinus rhythm at 80 beats per minute without ischemic ST-T changes. MDM Narrative Medical decision making narrative: 34 years old female with history of pulmonary hypertension came in today complaining of chest pain,, shortness of breath, headaches for the last 3 days without abdominal pain, dizziness, loss of consciousness, nausea vomiting. She has positive COVID 9 days ago. She denied any history of blood clot, leg pain, leg swelling. Her CV exam, lung exam, abdominal exam were benign. Her CBC showed WBC 8.1 and hemoglobin 13.5 her D-dimer was positive. A CMP showed AST 44 an ALT 59 consistently with a baseline. Normal PT INR and PTT 59. Her troponin was negative. The 2nd set troponin is pending. The CTA chest to rule out PE was pending. Her proBNP was normal. Her lipase was normal. I said altered my colleague during the shift change. <Riley Montez, DO - Last Filed: 02/21/25 20:34> Lab Data Labs: Lab Results 02/21/25 02/21/25 Range/Units 16:00 18:13 WBC 8.1 (4.5-11.0) X10^3/uL RBC 4.47 (4.0-5.2) X10^6/uL Hgb 13.5 (12.0-16.0) g/dL Hct 40.0 (36-46) % MCV 89.5 (80-100) fL MCH 30.2 (26-34) PG MCHC 33.7 (30-36) % RDW 13.0 (11.6-14.8) % Plt Count 265 (150-400) X10^3/uL Neut % (Auto) 71.1 (50-75) % Lymph % (Auto) 19.2 L (25-40) % Wise % (Auto) 7.5 (3-14) % Eos % (Auto) 1.6 L (2-4) % Baso % (Auto) 0.6 (0-2) % Neut # (Auto) 5800 (5559-5100) /uL Lymph # (Auto) 1600 (0942-0834) /uL Wise # (Auto) 600 (0-900) /uL Eos # (Auto) 100 (0-450) /uL Baso # (Auto) 0 (0-100) /uL PT 11.2 (9.4-12.5) SECONDS INR 1.0 (0.9-1.3) APTT 59 H (25.1-36.5) SECONDS D-Dimer 529 H (<500) ng/ml Sodium 138 (137-145) mmol/L Potassium 4.3 (3.4-5.1) mmol/L Chloride 106 (98-107) mmol/L Carbon Dioxide 22 (22-32) mmol/L BUN 14 (7-17) mg/dL Creatinine 0.77 (0.52-1.04) mg/dL Estimated GFR > 60 (>60) mL/min BUN/Creatinine Ratio 18.2 (6-22) Glucose 98 (70-99) mg/dL Calcium 9.3 (8.4-10.2) mg/dL Magnesium 2.1 (1.6-2.3) mg/dL Total Bilirubin 0.5 (0.2-1.3) mg/dL AST 44 H (14-36) IU/L ALT 59 H (<35) IU/L Alkaline Phosphatase 76 (38-126) U/L Total Creatine Kinase 61 (30-135) U/L Troponin I < 0.012 < 0.012 (0.01-0.034) ng/mL NT-Pro-B Natriuret Pep 49 (<125) pg/mL Total Protein 8.0 (6.3-8.2) g/dL Albumin 4.7 (3.5-5.0) g/dL Globulin 3.3 (1.7-4.1) g/dL Albumin/Globulin Ratio 1.4 (1.0-2.8) Lipase 68 (23-300) U/L Imaging Data CT scan - chest: Radiologist's Impression: [address] [address] [address] Scan Report Signed Patient: Katelynn Soares MR#: [id number] : 1990 Acct:[id number] Age/Sex: 34 / F Date of Service: 02/21/25 Loc: ED Accession Number: [id number] Procedure: CT angio chest PE protocol Ordering Provider: Bayron Balderrama MD PROCEDURE: CT ANGIO CHEST PE PROTOCOL INDICATIONS: Chest pain, positive D-dimer TECHNIQUE: After the administration of intravenous contrast, 2 mm thick sections acquired from the pulmonary apices to the posterior costophrenic angles. 3-dimensional maximum intensity projection (MIP) coronal and sagittal reformats were then acquired through the thorax. For radiation dose reduction, the following was used: automated exposure control, adjustment of mA and/or kV according to patient size. COMPARISON: [facility], CT, CT ANGIO CHEST PE PROTOCOL, 06/12/2024, 10:44. [facility], CT, CT ANGIO CHEST PE PROTOCOL, 12/07/2019, 14:16. FINDINGS: Image quality: Diagnostic. Pulmonary arteries: Main pulmonary artery is dilated to 5.4 cm as before, which can be seen in the setting of pulmonary arterial hypertension. Pulmonary arteries are normal in size, and demonstrate no intraluminal filling defects to suggest central pulmonary embolism. Lower Neck: No enlarged lymph nodes. Thyroid: No thyroid nodules which require sonographic follow up, per consensus guidelines. Axillae: No enlarged lymph nodes. Chest Wall: Unremarkable. Bones: Unremarkable. Lungs and Pleura: No pneumothorax or pleural effusions. Mild mosaic attenuation in the bilateral upper lobes similar to the prior exam. No consolidation or suspicious nodules. Heart: Heart size is normal. No pericardial effusion. Thoracic Vessels: No aortic aneurysm. Mediastinum and Merlyn: No enlarged lymph nodes. Esophagus: No wall thickening. No hiatal hernia. Upper Abdomen: Visualized upper abdomen solid organs and bowel loops appear normal. IMPRESSION: 1. No acute pulmonary embolus. 2. Dilated main pulmonary artery as before, which can be seen with pulmonary arterial hypertension. 3. Bilateral upper lobe ground-glass opacity, similar when compared to the CT from 06/12/2024, again suggestive of an inflammatory process such as hypersensitivity pneumonitis. Chest x-ray: Radiologist's Impression: [address] [address] XRay Report Signed Patient: Katelynn Soares MR#: [id number] : 1990 Acct:[id number] Age/Sex: 34 / F Date of Service: 02/21/25 Loc: ED Accession Number: [id number] Procedure: XR chest 1V Ordering Provider: Bayron Balderrama MD PROCEDURE: XR CHEST 1V INDICATIONS: Chest Pain TECHNIQUE: One view of the chest was acquired. COMPARISON: [facility], CR, XR CHEST 1V, 06/12/2024, 9:08. FINDINGS: Surgical changes and devices: None. Lungs and pleura: Lungs are clear. No pleural effusions or pneumothorax. Mediastinum: Mediastinal contours appear normal. Heart size is normal. Bones and chest wall: No suspicious bony lesions. Overlying soft tissues appear unremarkable. IMPRESSION: No acute cardiopulmonary pathology. MDM Narrative Medical decision making narrative: 34 years old female with history of pulmonary hypertension came in today complaining of chest pain,, shortness of breath, headaches for the last 3 days without abdominal pain, dizziness, loss of consciousness, nausea vomiting. She has positive COVID 9 days ago. She denied any history of blood clot, leg pain, leg swelling. Her CV exam, lung exam, abdominal exam were benign. Her CBC showed WBC 8.1 and hemoglobin 13.5 her D-dimer was positive. A CMP showed AST 44 an ALT 59 consistently with a baseline. Normal PT INR and PTT 59. Her troponin was negative. The 2nd set troponin is pending. The CTA chest to rule out PE was pending. Her proBNP was normal. Her lipase was normal. I said altered my colleague during the shift change. All lab work, vital signs, nurse triage note, medication list, previous ER visits, and all imaging studies reviewed. CTA showed no acute PE pulmonary arterial hypertension and bilateral upper lobe ground-glass opacity similar when compared to CT from previous in 05/2024. She is feeling much better she has upcoming appointment with her [employer] regarding her pulmonary arterial hypertension. Differential diagnosis includes PE STEMI NSTEMI pneumothorax anxiety GERD pulmonary arterial hypertension and post COVID. Heart score 1 Discharge Plan Departure Patient Disposition: Home Clinical Impression: Pulmonary arterial hypertension Chest pain Qualifiers: Chest pain type: chest pain on breathing Qualified Code(s): R07.1 - Chest pain on breathing Instructions: DI for Chest Pain Activity Restrictions/Additional Instructions: Return with new or worsening symptoms. Please follow up with [employer] regarding your pulmonary arterial hypertension with upcoming appointment. Prescriptions: No Action albuterol sulfate 90 mcg/actuation HFA aerosol inhaler 2 puff INHALATION Q4-6H PRN (Reason: shortness of breath or wheezing) Qty: 18 0RF erythromycin 5 mg/gram (0.5 %) ointment 0.5 inch ophthalmic (eye) 5XD Qty: 3.5 0RF bupropion HCl 150 mg tablet extended release 24 hr 450 mg PO QAM torsemide 10 mg tablet 20 mg PO DAILY spironolactone 50 mg tablet 50 mg PO DAILY sildenafil (pulm.hypertension) 20 mg tablet 20 mg PO 3XD selexipag 600 mcg tablet 1,600 mcg PO DAILY Rx Instructions: swallow whole; do not crush, chew, open, break/cut or dissolve ambrisentan 5 mg tablet 10 mg PO DAILY amoxicillin-pot clavulanate 875-125 mg tablet 1 tab PO BID Qty: 20 0RF meloxicam 7.5 mg tablet 7.5 mg PO BID PRN (Reason: pain) Qty: 14 0RF dexamethasone 1.5 mg (21 tabs) tablets,dose pack See Rx Instructions .ROUTE .COMPLEX Qty: 21 0RF Rx Instructions: 6 tabs p.o. x1 day, then 5 tabs p.o. x1 day, then 4 tablets p.o. x1 day, then 3 tabs p.o. x1 day, then 2 tabs p.o. x1 day, then 1 tab p.o. x1 day Referrals: Rashrad Elena MD [Primary Care Provider, Family Practice] Stand Alone Forms: Patient Portal/API
--- NOTE | 2025-02-21 18:06 | DI.CT.S_ITS ---
PROCEDURE: CT ANGIO CHEST PE PROTOCOL INDICATIONS: Chest pain, positive D-dimer TECHNIQUE: After the administration of intravenous contrast, 2 mm thick sections acquired from the pulmonary apices to the posterior costophrenic angles. 3-dimensional maximum intensity projection (MIP) coronal and sagittal reformats were then acquired through the thorax. For radiation dose reduction, the following was used: automated exposure control, adjustment of mA and/or kV according to patient size. COMPARISON: [facility], CT, CT ANGIO CHEST PE PROTOCOL, 06/12/2024, 10:44. [facility], CT, CT ANGIO CHEST PE PROTOCOL, 12/07/2019, 14:16. FINDINGS: Image quality: Diagnostic. Pulmonary arteries: Main pulmonary artery is dilated to 5.4 cm as before, which can be seen in the setting of pulmonary arterial hypertension. Pulmonary arteries are normal in size, and demonstrate no intraluminal filling defects to suggest central pulmonary embolism. Lower Neck: No enlarged lymph nodes. Thyroid: No thyroid nodules which require sonographic follow up, per consensus guidelines. Axillae: No enlarged lymph nodes. Chest Wall: Unremarkable. Bones: Unremarkable. Lungs and Pleura: No pneumothorax or pleural effusions. Mild mosaic attenuation in the bilateral upper lobes similar to the prior exam. No consolidation or suspicious nodules. Heart: Heart size is normal. No pericardial effusion. Thoracic Vessels: No aortic aneurysm. Mediastinum and Merlyn: No enlarged lymph nodes. Esophagus: No wall thickening. No hiatal hernia. Upper Abdomen: Visualized upper abdomen solid organs and bowel loops appear normal. IMPRESSION: 1. No acute pulmonary embolus. 2. Dilated main pulmonary artery as before, which can be seen with pulmonary arterial hypertension. 3. Bilateral upper lobe ground-glass opacity, similar when compared to the CT from 06/12/2024, again suggestive of an inflammatory process such as hypersensitivity pneumonitis. Approved by: Rinku Willoughby M.D. on 02/21/2025 at 18:42
[2025-02-21 18:40] LABS: Troponin I < 0.012 ng/mL (0.01-0.034)
== END 2025-02-21 20:39 | disposition home or self-care (01) ==
PROVIDERS: Emergency Medicine; Emergency Provider Family Medicine; PCP Family Medicine
DX: R07.1 Chest pain on breathing (principal); I27.21 Secondary pulmonary arterial hypertension
CPT/HCPCS: 36415; 71045; 71275; 80053; 82550; 83690; 83735; 83880; 84484; 85025; 85379; 85610; 85730; 93005; 99284; Q9967